=== PATIENT | male | born 1965 | race Caucasian/White ===

== ENCOUNTER 2024-05-26 15:45 | Outpatient (CLI) | payer OTHER, SELFPAY ==
[2024-05-26 16:40] LABS: Basophils # 0.1 K/mm3 (0-0.2); Basophils % 0.5 % (0.1-2.0); Eosinophils # 0.1 K/mm3 (0.0-0.4); Eosinophils % 1.2 % (0.1-12.0); Hematocrit 48.9 % (42.0-52.0); Hemoglobin 16.7 g/dL (14.1-18.0); Lymphocytes # 3.5 K/mm3 (0.7-4.5); Lymphocytes % 36.3 % (10-50); Mean Corpuscular HGB Conc 34.2 g/dL (31.8-35.4); Mean Corpuscular Hemoglobin 31.6 pg (27.0-31.2); Mean Corpuscular Volume 92.6 fl (80-94); Mean Platelet Volume 9.6 fl (7.4-10.4); Monocytes # 0.6 K/mm3 (0.1-1.0); Monocytes % 6.6 % (1.7-9.3); Neutrophils # 5.3 K/mm3 (1.8-7.8); Neutrophils % 55.1 % (37.0-80.0); Nucleated Red Blood Cells # 0 10^3/uL; Nucleated Red Blood Cells % 0 %; Platelet Count 189 K/mm3 (142-424); Red Blood Count 5.28 M/mm3 (4.60-6.20); Red Cell Distribution Width 12.7 % (11.5-17.5); Red Cell Distribution Width-SD 43.3 fL; White Blood Count 9.7 K/mm3 (4.8-10.8)
[2024-05-26 17:14] LABS: Alanine Aminotransferase 47 U/L (12-78); Albumin Level 4.5 g/dl (3.5-5.0); Albumin/Globulin Ratio 1.6 (1.1-1.8); Alkaline Phosphatase 93 U/L (38-126); Anion Gap 17.1 mEq/L (5-15); Aspartate Amino Transferase 42 U/L (17-59); Bilirubin,Total 0.8 mg/dl (0.2-1.3); Blood Urea Nitrogen 22 mg/dl (9-20); Calcium 9.9 mg/dl (8.4-10.2); Carbon Dioxide 27 mmol/L (22.0-30.0); Chloride 99 mmol/L (98-107); Chol/HDL Ratio 9.3 (1-3.5); Cholesterol 287 mg/dl (140-200); Estimated Glomerular Filt Rate 87 ml/min (>60); GFR (African American) 105 ML/MIN (>60); Globulin 2.9 g/dL (1.3-3.2); Glucose 132 mg/dl (74-100); HDL Cholesterol 31 mg/dl (40-60); Potassium 4.1 mmoL/L (3.5-5.1); Sodium 139 mmol/L (136-145); Total Protein,Serum 7.4 g/dl (6.3-8.2)
[2024-05-26 17:15] LABS: Triglycerides 500 mg/dl (30-150)
[2024-05-26 17:25] LABS: Direct LDL Cholesterol 148.83 mg/dL (100-129)
[2024-05-26 17:44] LABS: Thyroid Stimulating Hormone 1.33 uIU/mL (0.465-4.68)
[2024-05-26 21:02] LABS: Hemoglobin A1C 7.7 % (4.0-6.0)
[2024-05-27 05:01] LABS: Testosterone,Total 876 ng/dL (264-916)
== END 2024-05-26 23:59 | disposition home or self-care (01) ==
LOC: LAB 15:51
PROVIDERS: Visit Provider Family Medicine
DX: E29.1 Testicular hypofunction (principal); E11.40 Type 2 diabetes mellitus with diabetic neuropathy, unspecified; I10 Essential (primary) hypertension; E29.9 Testicular dysfunction, unspecified; Z79.84 Long term (current) use of oral hypoglycemic drugs; Z79.85 Long-term (current) use of injectable non-insulin antidiabetic drugs; F17.200 Nicotine dependence, unspecified, uncomplicated
CPT/HCPCS: 36415; 80053; 80061; 83036; 84403; 84443; 85025

== ENCOUNTER 2024-06-01 13:07 | Emergency (ER) | payer OTHER, SELFPAY ==
[2024-06-01 13:27] VITALS: BP 171/95; PULSE 77; RESP 17; TEMP 37.1; O2SAT 96
--- NOTE | 2024-06-01 13:37 | XR_ITS ---
PROCEDURE INFORMATION: Exam: XR Right Elbow Exam date and time: 06/01/2024 1:31 PM Age: 59 years old Clinical indication: Injury or trauma; Fall; Blunt trauma (contusions or hematomas); Elbow; Right; Additional info: Posterior fat pad foosh injury TECHNIQUE: Imaging protocol: Radiologic exam of the right elbow. Views: 3 or more views. COMPARISON: CR XR ELBOW RT MIN 3V 06/01/2024 1:31 PM FINDINGS: Bones/joints: A small bone fragment is suspected near the coronoid process of the ulna. There may be a small joint effusion. No other fractures, dislocations, or focal bone lesions. Soft tissues: No soft tissue gas, radiopaque foreign bodies, or masses. IMPRESSION: Loose body or avulsion fracture fragment are suspected near the coronoid process of the right ulna. CT or MRI are suggested for further characterization.
--- NOTE | 2024-06-01 13:38 | XR_ITS ---
PROCEDURE INFORMATION: Exam: XR Right Forearm Exam date and time: 06/01/2024 1:32 PM Age: 59 years old Clinical indication: Injury or trauma; Fall; Blunt trauma (contusions or hematomas); Arm, lower; Right; Additional info: Foosh injury, lateral forearm pain TECHNIQUE: Imaging protocol: Radiologic exam of the right forearm. Views: 2 views. COMPARISON: CR XR FOREARM RT 2V 06/01/2024 1:32 PM FINDINGS: Bones/joints: Bone spur or fracture of the coronoid process. No other fractures, dislocations, or focal bone lesions. Soft tissues: No soft tissue gas, radiopaque foreign bodies, or masses. IMPRESSION: 1. Questionable fracture of the coronoid process of the right ulna. 2. No other acute findings in the right forearm.
--- NOTE | 2024-06-01 13:38 | XR_ITS ---
PROCEDURE INFORMATION: Exam: XR Right Hand Exam date and time: 06/01/2024 1:34 PM Age: 59 years old Clinical indication: Injury or trauma; Fall; Blunt trauma (contusions or hematomas); Hand; Right; Additional info: Lateral hand pain, foosh injury, TECHNIQUE: Imaging protocol: Radiologic exam of the right hand. Views: 3 or more views. COMPARISON: CR XR HAND RT MIN 3V 06/01/2024 1:34 PM FINDINGS: Bones/joints: No fractures, dislocations, or bone lesions. Scapholunate space may be widened. Soft tissues: No soft tissue gas, radiopaque foreign bodies, or masses. IMPRESSION: 1. Possible scapholunate dissociation in the right wrist. Wrist radiographs suggested. 2. No other acute findings in the right hand.
--- NOTE | 2024-06-01 13:38 | XR_ITS ---
PROCEDURE INFORMATION: Exam: XR Right Wrist Exam date and time: 06/01/2024 1:36 PM Age: 59 years old Clinical indication: Injury or trauma; Fall; Blunt trauma (contusions or hematomas); Wrist; Right; Additional info: Foosh injury, lateral wrist pain TECHNIQUE: Imaging protocol: Radiologic exam of the right wrist. Views: 3 or more views. COMPARISON: CR XR HAND RT MIN 3V 06/01/2024 1:34 PM FINDINGS: Bones/joints: Scapholunate space is slightly widened. No fractures, dislocations, or focal bone lesions. Mild bone hypertrophy in the distal radioulnar joint. Soft tissues: No soft tissue gas, radiopaque foreign bodies, or masses. IMPRESSION: 1. Scapholunate dissociation is suspected. MRI is suggested if clinically warranted. 2. No fractures or dislocations in the right wrist. If occult fracture is clinically suspected, splinting and short-term wrist x-ray surveillance or MRI of the wrist would be suggested.
--- NOTE | 2024-06-01 13:40 | PC.NURSE ---
pt currently going for scans
--- NOTE | 2024-06-01 13:43 | HMH.EDGENADL ---
Discharge Plan Disposition Patient Disposition: Home, Self-Care Condition: Good Referrals Follow up/Referrals: Saeed Arellano DO [Staff Physician] - See instructions Provider,Referral, [Primary Care Provider] - See instructions Activity Restrictions/Add. Instructions Additional Instructions/Restrictions: Please return to the emergency department for any worsening signs or symptoms, please follow-up with orthopedic provider in the upcoming days. Utilized sling as needed, I recommend rest ice, other anti-inflammatory medications and muscle relaxers as needed for symptomatic relief. Clinical Impressions Clinical Impression: Fracture of coronoid process of right ulna, Scapho-lunate dissociation Instructions Patient Instructions: DI for Elbow Fracture, DI for Wrist Strain Print Language Print Language: Kazakh Discharge ED Provider: Tylor Link General Adult HPI <TOM Zepeda - Last Filed: 06/01/24 15:28> General Chief complaint: Extremity Injury, Upper Stated complaint: AO 05/31/24 R Arm Pain/Swelling Time Seen by Provider: 06/01/24 13:13 Mode of Arrival: Ambulatory Source of Information: Patient Description of Symptoms (Recalled from ER Triage Doc. by RN): pt to the ED after tripping over a pile of lumber and falling to the ground onto his right arm. pt reports right forearm pain that radiates to his shoulder and hand. pt has +PMS and swelling observed on assessment. History of Present Illness HPI narrative: 59-year-old male presents the emergency department with a FOOSH injury on the right arm, complaining of right elbow pain, right forearm pain, right wrist and right hand pain more located on the lateral aspect, patient states this occurred yesterday when he was moving some lumber , when he tripped falling around 2 to 3 feet, off the [facility] , he did not strike the head, he landed on his right arm, denies any right shoulder pain or right humeral pain, with range of motion, but he does state that the pain will shoot up into the shoulder . He has difficulty with pronation supination and internal and external rotation of the forearm, notes pain and swelling on the lateral aspect of the forearm in the olecranon region. He is not on any anticoagulant therapy, denies any fever chills chest pain shortness of breath nausea vomiting constipation diarrhea no abdominal pain, no other extremity pain, neck or back pain, is without a presyncopal or syncopal event, patient states that he tripped . Other past medical history consistent with type 2 diabetes and hypertension, denies any substance use or abuse. Initial triage vitals unremarkable. Patient been taking muscle relaxer (methocarbamol) and ibuprofen with some relief to his symptomatology. Brought him to the emergency department today was his pain with range of motion and swelling. Onset (ago): day(s) Related Data Allergies Allergy/AdvReac Type Severity Reaction Status Date / Time No Known Allergies Allergy Verified 06/01/24 13:42 PFS <TOM Zepeda - Last Filed: 06/01/24 15:28> [facility] [place] Disclaimer: The information contained in this section may have been updated after the patient was seen, as this information can be updated by other users. Social History (Updated 06/01/24 @ 15:28 by TOM Zepeda) Smoking Status: Current every day smoker alcohol intake: never current occupational status: other Travel in the last 8 weeks: None <TOM Zepeda - Last Filed: 06/01/24 15:28> ROS Obtained: Yes All systems reviewed & no additional complaints except as documented Physical Exam <TOM Zepeda - Last Filed: 06/01/24 15:28> General General appearance: alert and in no apparent distress Head Head exam: atraumatic and normocephalic Eye Eye exam: Present PERRL and EOMI ENT ENT exam: Present mucous membranes moist Neck Neck exam: Present normal inspection Chest Chest inspection: Present normal inspection and symmetric chest wall rise Respiratory Respiratory exam: Present normal lung sounds bilaterally; Absent respiratory distress Cardiovascular Cardiovascular exam: Present regular rate and normal rhythm Abdominal Exam Abdominal exam: Present soft; Absent tenderness Extremities Exam Extremities exam: Present normal inspection, tenderness, joint swelling and other (Patient has decreased range of motion of the right forearm and right elbow, patient has difficulty with internal and external rotation, difficulty with pronation and supination, there is tenderness along the lateral aspect of the olecranon region down to the hand, carpal rows appear intact, no anato); Absent full ROM Neurological Exam Neurological exam: Present alert and oriented X3 Psychiatric Psychiatric exam: Present normal affect Skin Skin exam: Present warm and dry Medical Decision Making <TOM Zepeda - Last Filed: 06/01/24 15:28> Medical Records Medical records reviewed: Yes I reviewed the patient's medical records. Screening: Per USPSTF and CDC recommendations, given the prevalence of disease in our region, it is our hospital?s policy to screen for HIV and viral Hepatitis for all patients aged 18 and over and those with ongoing risk factors. Leo Inquiry Pt receiving controlled substance: No Leo was queried for this patient: No Vital Signs: 06/01/24 13:27 06/01/24 15:36 Temperature 98.7 F 98.0 F Temperature Source Oral Oral Pulse Rate 71 Pulse Rate [Left Radial] 77 Respiratory Rate 17 16 Blood Pressure 156/90 H Blood Pressure [Right Arm] 171/95 H Blood Pressure Mean [Right Arm] 120 Blood Pressure Source Automatic Cuff Blood Pressure Source [Right Arm] Automatic Cuff Blood Pressure Position Sitting Blood Pressure Position [Right Arm] Sitting 02 Sat by Pulse Oximetry 96 Oxygen Delivery Method Room Air Room Air Orders (Tests/Meds): ED MEDICATIONS Discontinued Medications Generic Name Dose Route Start Last Admin Trade Name Freq PRN Reason Stop Dose Admin Ketorolac Tromethamine 15 mg 06/01/24 13:39 06/01/24 13:51 Ketorolac 30mg/Ml Vial IM 06/01/24 13:40 15 mg ONCE ONE Administration ORDERS Category Date Time Status Hand XR right minimum 3 views [XR hand RT min 3V] Stat Exams 06/01/24 13:38 Completed POCUS Point of Care (ER Only) Stat Exams 06/01/24 13:37 Completed XR elbow RT min 3V Stat Exams 06/01/24 13:37 Completed XR forearm RT 2V Stat Exams 06/01/24 13:38 Completed XR wrist RT min 3V Stat Exams 06/01/24 13:38 Completed Medical Decision Narrative: 59-year-old male presents emergency department with a FOOSH injury of the right forearm, differential diagnose include not limited to supracondylar fracture, radial head fracture, ulnar fracture, olecranon dislocation, olecranon fracture, forearm musculoskeletal injury, forearm sprain/strain, elbow sprain/strain, wrist fracture, wrist sprain/strain. I discussed patient case with attending physician saw and examined the patient as well. Will obtain x-ray of the elbow, forearm, wrist and hand on the right, will also obtain POCUS for any soft tissue/forearm musculoskeletal injury, and will give 15 mg IM Toradol. I along with the attending physician from bedside POCUS ultrasound. Please see ultrasound documentation for full report. I reviewed and independently interpreted the patient's elbow x-ray along the corresponding radiologic report, loose body or avulsion fracture fragment suspected near the coronoid process of the right ulna, CT or MRI suggest for further characterization. Reviewed the patient's x-ray of the forearm, hand x-ray, and independently interpreted and along with the corresponding radiologic report, questionable fracture of the coronoid process of the right ulna, no other acute findings in the right forearm. There is possible scapholunate dissociation of the right wrist, right wrist radiographs suggested, no other acute findings in the right hand. Reviewed and independently interpreted the patient's right wrist x-ray along the corresponding radiologic report, scapholunate dissociation is suspected MRI suggested if clinically warranted, no fractures or dislocation the right wrist difficult fracture is clinically suspected splinting and short-term wrist x-ray surveillance or MRI of the wrist would be suggested. I discussed this patient's case with Dr. Arellano the on-call orthopedic surgeon at 3:22 PM, he recommends posterior long-arm splint and follow-up in orthopedic surgery clinic. Recommend rest ice compression elevation, patient was placed in posterior long-arm splint with sling, post procedurally, neurovascular intact, moves extremity command, no difficulty or pain. Patient voiced understanding of the current treatment plan/discharge plan. Patient will return emerged part any worsening signs or symptoms. <Tylor Link MD - Last Filed: 06/03/24 19:42> Vital Signs: 06/01/24 13:27 06/01/24 15:36 Temperature 98.7 F 98.0 F Temperature Source Oral Oral Pulse Rate 71 Pulse Rate [Left Radial] 77 Respiratory Rate 17 16 Blood Pressure 156/90 H Blood Pressure [Right Arm] 171/95 H Blood Pressure Mean [Right Arm] 120 Blood Pressure Source Automatic Cuff Blood Pressure Source [Right Arm] Automatic Cuff Blood Pressure Position Sitting Blood Pressure Position [Right Arm] Sitting 02 Sat by Pulse Oximetry 96 Oxygen Delivery Method Room Air Room Air Orders (Tests/Meds): ED MEDICATIONS Discontinued Medications Generic Name Dose Route Start Last Admin Trade Name Freq PRN Reason Stop Dose Admin Ketorolac Tromethamine 15 mg 06/01/24 13:39 06/01/24 13:51 Ketorolac 30mg/Ml Vial IM 06/01/24 13:40 15 mg ONCE ONE Administration ORDERS Category Date Time Status Hand XR right minimum 3 views [XR hand RT min 3V] Stat Exams 06/01/24 13:38 Completed POCUS Point of Care (ER Only) Stat Exams 06/01/24 13:37 Completed XR elbow RT min 3V Stat Exams 06/01/24 13:37 Completed XR forearm RT 2V Stat Exams 06/01/24 13:38 Completed XR wrist RT min 3V Stat Exams 06/01/24 13:38 Completed Medical Decision Narrative: 59-year-old male presents emergency department with a FOOSH injury of the right forearm, differential diagnose include not limited to supracondylar fracture, radial head fracture, ulnar fracture, olecranon dislocation, olecranon fracture, forearm musculoskeletal injury, forearm sprain/strain, elbow sprain/strain, wrist fracture, wrist sprain/strain. I discussed patient case with attending physician Dr.Kayser mitchell and examined the patient as well. Will obtain x-ray of the elbow, forearm, wrist and hand on the right, will also obtain POCUS for any soft tissue/forearm musculoskeletal injury, and will give 15 mg IM Toradol. I along with the attending physician from bedside POCUS ultrasound. Please see ultrasound documentation for full report. I reviewed and independently interpreted the patient's elbow x-ray along the corresponding radiologic report, loose body or avulsion fracture fragment suspected near the coronoid process of the right ulna, CT or MRI suggest for further characterization. Reviewed the patient's x-ray of the forearm, hand x-ray, and independently interpreted and along with the corresponding radiologic report, questionable fracture of the coronoid process of the right ulna, no other acute findings in the right forearm. There is possible scapholunate dissociation of the right wrist, right wrist radiographs suggested, no other acute findings in the right hand. Reviewed and independently interpreted the patient's right wrist x-ray along the corresponding radiologic report, scapholunate dissociation is suspected MRI suggested if clinically warranted, no fractures or dislocation the right wrist difficult fracture is clinically suspected splinting and short-term wrist x-ray surveillance or MRI of the wrist would be suggested. I discussed this patient's case with Dr. Arellano the on-call orthopedic surgeon at 3:22 PM, he recommends posterior long-arm splint and follow-up in orthopedic surgery clinic. Recommend rest ice compression elevation, patient was placed in posterior long-arm splint with sling, post procedurally, neurovascular intact, moves extremity command, no difficulty or pain. Patient voiced understanding of the current treatment plan/discharge plan. Patient will return emerged part any worsening signs or symptoms. I was consulted by the BRANDON, and we discussed the complexity of the problems being addressed.I approved the treatment and management plan for this patient?s care in the Emergency Department, thus performing a substantive portion of the medical decision making.Signed, Tylor Link MD [facility] <TOM Zepeda - Last Filed: 06/01/24 15:28> Critical Care Time Critical Care Time: No
[2024-06-01] MEDS: KETOROLAC 30MG/ML VIAL 15 MG IM (13:51)
--- NOTE | 2024-06-01 15:21 | PC.NURSE ---
splinted patient in a sugar tong splint and placed in a sling all PMS in tact after placement.
[2024-06-01 15:36] VITALS: BP 156/90; PULSE 71; RESP 16; TEMP 36.7; O2SAT 92
== END 2024-06-01 15:37 | disposition home or self-care (01) ==
PROVIDERS: Emergency Provider Emergency Medicine
DX: S52.041A Displaced fracture of coronoid process of right ulna, initial encounter for closed fracture (principal); M25.331 Other instability, right wrist; W01.10XA Fall on same level from slipping, tripping and stumbling with subsequent striking against unspecified object, initial encounter
CPT/HCPCS: 29105; 73080; 73090; 73110; 73130; 96372; 99283; J1885

== ENCOUNTER 2024-06-11 07:16 | Outpatient (CLI) | payer OTHER, SELFPAY ==
--- NOTE | 2024-06-11 07:30 | CT_ITS ---
FINAL REPORT CLINICAL HISTORY: Rt Elbow fracture COMPARISON: Elbow plain film dated 06/01/2024 FINDINGS: CT RIGHT ELBOW WITHOUT CONTRAST TECHNIQUE: Axial and reformatted sagittal and coronal images were obtained of the right elbow. This study was performed with techniques to keep radiation doses as low as reasonably achievable, (ALARA). Individualized dose reduction techniques using automated exposure control or adjustment of mA and/or kV according to the patient's size were employed. FINDINGS: There are small osteophytes arising from the coronoid process seen on images [id number] of series 601. A minimal osteophyte is identified along the superior margin of the olecranon, posteriorly. No free fragments are seen. There is no joint effusion. No definite acute fracture is identified IMPRESSION: No definite acute fracture. Reviewed, Interpreted and Dictated by Micheal Garcia MD Transcribed by Deanna Samaniego Authenticated and [facility]
== END 2024-06-11 23:59 | disposition home or self-care (01) ==
LOC: RAD 07:17
PROVIDERS: PCP Family Medicine; Visit Provider Physician Assistant
DX: S42.401A Unspecified fracture of lower end of right humerus, initial encounter for closed fracture (principal)
CPT/HCPCS: 73200

== ENCOUNTER 2024-06-15 16:09 | Outpatient (CLI) | payer OTHER, SELFPAY ==
--- NOTE | 2024-06-15 16:12 | MR_ITS ---
PROCEDURE INFORMATION: Exam: MR Lumbar Spine Without Contrast Exam date and time: 06/15/2024 4:17 PM Age: 59 years old Clinical indication: Low back pain; Lower back pain going into legs worse on right side TECHNIQUE: Imaging protocol: Magnetic resonance imaging of the lumbar spine without contrast. COMPARISON: No relevant prior studies available. FINDINGS: Bones/joints: A subcentimeter T1 hyperintense hemangioma is seen within the T12 vertebral body. The lumbar vertebral bodies are normal in height, without abnormal subluxation. Spinal cord: The distal end of the conus medullaris ends at L1, normal in position. Multilevel findings: Degenerative changes are noted from L3-L4 through L5-S1, with a decrease in the T2 signal intensity of the discs, as well as disc bulge/osteophyte complexes. L1-L2: Bilateral facet arthropathy. Minimal disc bulging is visualized causing flattening of the ventral thecal sac, without significant spinal canal stenosis. There is narrowing of the right lateral recess. Mild bilateral neural foraminal narrowing is identified. L2-L3: Bilateral facet arthropathy with hypertrophy of the ligamentum flavum. A broad-based disc bulge is identified, with severe narrowing of the thecal sac. The AP dimension of the thecal sac measures 0.7 cm. There is narrowing of both lateral recesses. Moderate bilateral neural foraminal narrowing is identified. L3-L4: Bilateral facet arthropathy with hypertrophy of the ligamentum flavum. A broad-based disc bulge is identified, with severe spinal canal stenosis. The AP dimension of the thecal sac measures 0.6 cm. There is narrowing of both lateral recess. Moderate right and severe left neural foraminal narrowing identified. L4-L5: Endplate irregularity is identified. There is abnormal morphology of the posterior elements. A right paracentral disc protrusion is identified, with [id number] spinal canal stenosis. There is narrowing of the right lateral recess. Moderate bilateral neural foraminal narrowing is identified. L5-S1: A significant decrease in disc height is identified, with Modic endplate changes. There is abnormal morphology of the posterior elements. A broad-based disc bulge with right paracentral disc protrusion are identified causing a mild impression on the right ventral thecal sac. There is narrowing of the lateral recesses, right side greater than left, with encroachment on the right S1 nerve root within the right lateral recess. Moderate to severe right and severe left neural foraminal narrowing identified. Soft tissues: Edema is seen within the right posterior paraspinal soft tissues of the level the sacrum. Muscle strain, myositis, and denervation are within the differential. Muscle atrophy is also seen. Kidneys and ureters: At the midpole of the left kidney, a 2.0 cm T2 hyperintense cyst or cystic lesion is partially visualized. IMPRESSION: 1. Degenerative changes are visualized involving the lumbar spine, as described above. 2. Severe spinal canal stenoses are visualized at L2-L3 and L3-L4. At L4-L5, a right paracentral disc protrusion is identified, with [id number] spinal canal stenosis. A right paracentral disc protrusion at L5-S1 causes a mild impression on the right ventral thecal sac. There is encroachment on the right S1 nerve root within the right lateral recess at L5-S1. 3. Neural foraminal narrowing at all lumbar levels. 4. Edema is seen within the right posterior paraspinal soft tissues of the level the sacrum. Muscle strain, myositis, and denervation are within the differential. Muscle atrophy is also seen. 5. At the midpole of the left kidney, a 2.0 cm cyst or cystic lesion is partially visualized. Follow-up ultrasonography recommended. 6. Additional findings described above.
== END 2024-06-15 23:59 | disposition home or self-care (01) ==
LOC: RAD 16:10
PROVIDERS: PCP Family Medicine; Visit Provider Family Medicine
DX: M54.16 Radiculopathy, lumbar region (principal); M54.50 Low back pain, unspecified
CPT/HCPCS: 72148

== ENCOUNTER 2024-07-13 10:05 | Outpatient (CLI) | payer OTHER, SELFPAY ==
--- NOTE | 2024-07-13 | CA_ITS ---
APPROVED REPORT Exam: Exercise Treadmill Technologist: Glenis Villalobos Ht: 6 ft 6 in Wt: 260 lbs BSA: 2.52 m2 HR: 76 bpm BP: 154/90 mmHg Stress Test Details Test: Exercise stress testing was performed using a Gwyn protocol. HR Resting HR: 76 bpm Max Heart Rate (APMHR): 162.437964 bpm Max HR Achieved: 141 bpm Target HR (85% APMHR): 137.990412 bpm % of APMHR: 87.04 Recovery HR: 95 bpm BP Resting BP: 154.0/90.0 mmHg Max BP: 220.0/116.0 mmHg Recovery BP: 186.0/100.0 mmHg ECG Resting ECG: Sinus rhythm Stress ECG Conclusion Symptoms: Fatigue Arrhythmias/Ectopy: PVC, PAC ST-T Changes: [address] depression Conclusion: Borderline abnormal ST depression, abnormal blood pressure response to exercise. Electronically signed by : Gavi German MD 07/14/2024 23:31:40
== END 2024-07-13 23:59 | disposition home or self-care (01) ==
LOC: RT 10:05
PROVIDERS: PCP Family Medicine; Visit Provider Family Medicine
DX: I49.1 Atrial premature depolarization (principal); I49.3 Ventricular premature depolarization; R94.31 Abnormal electrocardiogram [ECG] [EKG]
CPT/HCPCS: 93017; 93018

== ENCOUNTER 2024-09-16 12:41 | Outpatient (RCR) | payer OTHER, SELFPAY | END 2024-10-27 08:00 | disposition home or self-care (01) | LOC: CR 12:41 | PROVIDERS: Visit Provider Family Medicine | DX: I25.10 Atherosclerotic heart disease of native coronary artery without angina pectoris (principal); Z95.1 Presence of aortocoronary bypass graft; Z53.21 Procedure and treatment not carried out due to patient leaving prior to being seen by health care provider ==

== ENCOUNTER 2024-12-10 16:02 | Outpatient (CLI) | payer OTHER, SELFPAY ==
--- OUTSIDE RECORDS SUMMARY | 2024-12-10 16:05 | XMS_ITS | Encounter Summary ---
Author Organization [facility] Address [address] [place] [address] Care Team Providers Care Estate Agent Name Role Phone Justino Sargent DO Primary Care Provider Mauricio Lorenz MD Unavailable [phone] Reason for Referral * Consultation (Routine) - Closed Specialty Diagnoses / Procedures Referred By Contac t Referred To Contact Cardiology Diagnoses Abnormal stress test Family history of coronary artery disease Referral ID Status Reason Start Date Expiration Date Visits Re quested Visits Authorized [id number] Closed 07/26/2024 01/25/2026 1 1 Encounter Details Date Type Department Care Team (Late st Contact Info) Description 07/26/2024 [facility] [address] [place] [address] Justino Sargent DO [address] [place] [address] Abnormal stress test (Primary Dx); Family history of coronary artery disease Social History Tobacco Use Types Packs/Day Years Used Date Smoking Tobacco: Never Assessed Sex and Gender Information Value Date Recorded Sex Assigned at Male 07/01/2024 10:44 AM EDT Legal Sex Male 9:56 AM EDT Gender Identity Male 07/01/2024 10:44 AM EDT Sexual Orientation Not on file documented as of this encounter Plan of Treatment Upcoming Encounters Date Type Department Care Team (Late st Contact Info) Description 02/04/2025 12:30 PM EST Appointment Medical Office Building Cardiac Diagnostic Testing Medical Office Building Echo Lab [address] [facility], [address] [place] [phone] 02/04/2025 2:40 PM EST Office Visit [facility] [place] [address] [facility] [facility], [address] [place] [phone] Mauricio Lorenz MD [address] [place] [address] Scheduled Referrals Name Type Priority Associated Diagnoses Order Schedule Ambulatory referral to Cardiology Outpatient Referral Routine Abnormal stress test Family history of coronary artery disease 1 Occurrences starting 07/26/2024 until 01/27/2026 documented as of this encounter Visit Diagnoses Diagnosis Abnormal stress test- Primary Other nonspecific abnormal cardiovascular system function study Family history of coronary artery disease Family history of ischemic heart disease documented in this encounter Care Teams Estate Agent Relationship Specialty Start Date End Date Justino Sargent DO [address] [place] [address] PCP - General 08/04/24 Mauricio Lorenz MD [address] [place] [address] Consulting Physician Cardiology 09/10/24 documented as of this encounter
--- OUTSIDE RECORDS SUMMARY | 2024-12-10 16:05 | XMS_ITS | Encounter Summary ---
Author Organization [facility] Address [address] [place] [address] Care Team Providers Care City Planner Name Role Phone ArieSimeonkyleeflor FUENTES Primary Care Provider Mauricio Lorenz MD Unavailable [phone] Encounter Details Date Type Department Care Team (Late st Contact Info) Description 06/01/2024 Orders Only External Location [address] [place] [id number] Provider, External Social History Tobacco Use Types Packs/Day Years [...] Medical Office Building Echo Lab [address] [facility], [address] [place] [address] 02/04/2025 2:40 PM EST Office Visit [facility] [place] [address] [facility], [address] [place] [address] Mauricio Lorenz MD [address] [place] [address] documented as of this encounter Procedures Procedure Name Priority Date/Time Associated Diagnosis Comments XR [facility] OUTSIDE IMAGES 06/01/2024 1:34 PM EDT documented in this encounter Results * XR [facility] OUTSIDE IMAGES (06/01/2024 1:34 PM EDT) Anatomical Region Laterality Modality Radiographic Sruthi ging 06/01/2024 1:34 PM EDT us External Provider IMG XR PROCEDURES Final Result documented in this encounter Visit Diagnoses Not on filedocumented in this encounter Care Teams City Planner Relationship Specialty Start Date End Date Justino Sargent DO [address] [place] [address] PCP - General 08/04/24 Mauricio Lorenz MD [address] [place] [phone] Consulting Physician Cardiology 09/10/24 documented as of this encounter
--- OUTSIDE RECORDS SUMMARY | 2024-12-10 16:05 | XMS_ITS | Clinical Summary ---
Author Organization [facility] Address [address] [place] [address] Care Team Providers Care Endoscopy Rn Name Role Phone Justino Sargent DO Primary Care Provider Mauricio Lorenz MD Unavailable [phone] Allergies No known active allergies Medications testosterone cypionate (Depo-Testoste mandi) 200 MG/ML injection INJECT 1/2 ML INTRAMUSCULARLY ONCE A WEEK discard remaindr AFTER each use 07/31/19 25 Active metFORMIN (Glucophage) 500 MG tablet TAKE ONE TABLET BY MOUTH TWICE DAILY (900am AND 900pm) 07/31/19 25 Active citalopram (CeleXA) 40 MG tablet Take 1 tablet by mouth daily. Active nitroglycerin (Nitrostat) 0.[address] 1 tablet under the tongue every 5 minutes as needed for chest pain. May repeat dose every 5 minutes for up to 3 doses total. 100 tablet 08/07/19 026 Active ASPIRIN 81 MG chewable tablet Chew 1 tablet daily. Active B Complex-C (b complex-vitami n c) tablet Take 1 tablet by mouth daily. Active cholecalcifero l (Vitamin D-3) 250 MCG (44836 UT) capsule Take 1 capsule by mouth daily. Active Turmeric (QC TUMERIC COMPLEX PO) Take 1 tablet by mouth daily. Active Continuous Glucose Sensor (FreeStyle Sampson 3 Plus Sensor) misc 1 sensor every 15 days. Apply one censor every 15 days. 2 each 08/17/19 25 Active metoprolol tartrate (Lopressor) 25 MG tablet Take 1 tablet by mouth 2 times a day. 60 tablet 2 08/20/19 25 Active acetaminophen (Tylenol) 325 MG tablet Take 2 tablets by mouth every 4 hours as needed for pain, headaches or fever. Under [place] law, monthly prescriptions (30 days) can be refilled at 25 days and three-month prescriptions (90 days) at 80 days. Please contact the insurance company with questions if refills are denied. 100 tablet 08/20/19 25 Active atorvastatin (Lipitor) 80 MG tablet Take 1 tablet by mouth nightly. 30 tablet 2 08/20/19 25 Active ezetimibe (Zetia) 10 MG tablet Take 1 tablet by mouth nightly. 30 tablet 2 08/20/19 25 Active Blood Glucose Monitoring Suppl device Test three times daily 1 each 08/20/19 25 Active glucose blood test strip Test three times daily 300 strip 08/20/19 25 Active Lancets misc Test three times daily 300 each 08/20/19 25 Active Alcohol Sheets (Alcoh-Wipe) sheet Use as directed. 300 each 08/20/19 25 Active pen needle, diabetic 31G X 5 MM misc Use as directed with insulin pen. 100 each 08/20/19 25 Active insulin glargine (Lantus SoloStar) 100 UNIT/ML injection pen Inject 18 Units under the skin nightly. 15 mL 3 08/20/19 25 Active pen needle, diabetic 31G X 5 MM misc Use as directed with insulin pen. 100 each 08/20/19 25 Active insulin lispro 100 UNIT/ML injection pen Inject 6 Units under the skin 3 times a day with meals. Add a correction scale dose as follows: blood sugar 150-199 use 1 unit, 200-249 use 2 units, 250-299 use 3 units, 300-349 use 4 units, 350-399 use 5 units, >399 use 6 units and call provider. 15 mL 08/20/19 25 Active methocarbamol (Robaxin) 500 MG tablet Take 2 tablets by mouth 4 times a day for 10 days. 80 tablet 08/20/19 25 Active naloxone (Narcan) 4 mg/0.1 mL nasal spray 1. Give 1 spray in nostril for no/slow breathing or cannot wake after opioid use 2. Call 911 3. Repeat in other nostril if symptoms continue 1 each 08/20/19 Active empagliflozin (Jardiance) 10 MG Take 1 tablet by mouth daily. 30 tablet 2 08/20/19 25 Active apixaban (Eliquis) 5 MG tablet Take 1 tablet by mouth 2 times a day. 60 tablet 09/09/19 Active furosemide (Lasix) 40 MG tablet Take 1 tablet by mouth every other day for 5 doses. 5 tablet 09/09/19 Active Additional Information Patient not taking.Reported on 10/06/2024 amLODIPine (Norvasc) 10 MG tablet Take 1 tablet by mouth daily. 30 tablet 5 10/07/19 25 Active Active Problems Problem Noted Date Diagnosed Date BMI 29.0-29.9,adult 09/08/2024 Anemia, unspecified 08/19/2024 Cardiomegaly 08/19/2024 Pleural effusion, not elsewhere classified 08/19 Mild mitral regurgitation 08/18/2024 Mild tricuspid regurgitation 08/18/2024 Hypocalcemia 08/18/2024 Hypophosphatemia 08/18/2024 RBBB 08/18/2024 Hypercholesteremia 08/18/2024 Hypertriglyceridemia 08/18/2024 Hypoalphalipoproteinemia 08/18/2024 Hyperglycemia 08/18/2024 Depression 08/18/2024 Tobacco abuse 08/18/2024 Other specified symptoms and signs involving the circulatory and respiratory systems 08/18/2024 Type 2 diabetes mellitus with hyperglycemia 03/2024 Atrial premature depolarization 08/17/2024 Other nonspecific abnormal finding of lung field 08/17/2024 Atelectasis 08/16/2024 Cardiac volume overload 08/15/2024 Assessment & Plan (08/17/2024 8:34 AM EDT): - eval daily need for diuresis Assessment & Plan (08/16/2024 7:31 AM EDT): - eval daily need for diuresis Assessment & Plan (08/15/2024 3:14 PM EDT): - eval daily need for diuresis Other fecal abnormalities 08/15/2024 Acute blood loss anemia 08/14/2024 Assessment & Plan (08/17/2024 8:34 AM EDT): - Likely s/t blood loss post-op - transfuse as indicated - CTM with daily labs Assessment & Plan (08/16/2024 7:31 AM EDT): - Likely s/t blood loss post-op - transfuse as indicated - CTM with daily labs Assessment & Plan (08/15/2024 3:14 PM EDT): - Likely s/t blood loss post-op - transfuse as indicated - CTM with daily labs Assessment & Plan (08/14/2024 1:09 PM EDT): - Likely s/t blood loss post-op - transfuse as indicated - CTM with daily labs Other specified cardiac arrhythmias 08/14/2024 CAD, multiple vessel 08/13/2024 Assessment & Plan (08/17/2024 8:34 AM EDT): -Now s/p 6v CABG with Dr. Kadie nagel/jose/analy as indicated Assessment & Plan (08/16/2024 7:31 AM EDT): -Now s/p 6v CABG with Dr. Kadie nagel/jose/analy as indicated Assessment & Plan (08/15/2024 3:14 PM EDT): -Now s/p 6v CABG with Dr. Kadie nagel/jose/analy as indicated Assessment & Plan (08/14/2024 1:09 PM EDT): -Now s/p 6v CABG with Dr. Kadie nagel/jose/analy as indicated Assessment & Plan (08/14/2024 2:32 AM EDT): -Monitor per protocol -Now s/p 6v CABG with Dr. Engle Essential hypertension 08/13/2024 Assessment & Plan (08/17/2024 8:34 AM EDT): -Resume home meds as appropriate Assessment & Plan (08/16/2024 7:31 AM EDT): -Resume home meds as appropriate Assessment & Plan (08/15/2024 3:14 PM EDT): -Resume home meds as appropriate Assessment & Plan (08/14/2024 1:09 PM EDT): -Resume home meds as appropriate Assessment & Plan (08/14/2024 2:32 AM EDT): -Monitor per protocol -Resume home meds as appropriate HLD (hyperlipidemia) 08/13/2024 Assessment & Plan (08/17/2024 8:34 AM EDT): - atorva 80 nightly Assessment & Plan (08/16/2024 7:31 AM EDT): - atorva 80 nightly Assessment & Plan (08/15/2024 3:14 PM EDT): - atorva 80 nightly Assessment & Plan (08/14/2024 1:09 PM EDT): - atorva 80 nightly Assessment & Plan (08/14/2024 2:32 AM EDT): -Monitor per protocol. -Statin as appropriate DM (diabetes mellitus), type 2 08/13/2024 Assessment & Plan (08/17/2024 8:34 AM EDT): -Tight glucose control for wound healing -08/16: on resistant SSI. increase long acting and start meal time dose Lab Results Component Value Date HGBA1C 7.4 (H) 08/11/2024 Assessment & Plan (08/16/2024 11:09 AM EDT): -Tight glucose control for wound healing -08/16: on resistant SSI. increase long acting and start meal time dose Lab Results Component Value Date HGBA1C 7.4 (H) 08/11/2024 Assessment & Plan (08/15/2024 3:14 PM EDT): -Tight glucose control for wound healing -resistant SSI+long acting started 08/15 Lab Results Component Value Date HGBA1C 7.4 (H) 08/11/2024 Assessment & Plan (08/14/2024 1:09 PM EDT): -Tight glucose control for wound healing -resistant SSI Lab Results Component Value Date HGBA1C 7.4 (H) 08/11/2024 Assessment & Plan (08/14/2024 2:32 AM EDT): -Monitor per protocol. -Tight glucose control for wound healing Lab Results Component Value Date HGBA1C 7.4 (H) 08/11/2024 S/P coronary artery bypass graft x 6 08/13/2024 Assessment & Plan (08/17/2024 8:34 AM EDT): S/p 6v CABG with Dr. Engle on 08/13 -Monitor CT output -Daily labs and CXR -Diuresis and BB as appropriate Assessment & Plan (08/16/2024 7:31 AM EDT): S/p 6v CABG with Dr. Engle on 08/13 -Monitor CT output -Daily labs and CXR -Diuresis and BB as appropriate Assessment & Plan (08/15/2024 3:14 PM EDT): S/p 6v CABG with Dr. Engle on 08/13 -Monitor CT output -Daily labs and CXR -Diuresis and BB as appropriate Assessment & Plan (08/14/2024 1:09 PM EDT): S/p 6v CABG with Dr. Engle on 08/13 -Monitor CT output -Wean pressors as able -Daily labs and CXR -Diuresis and BB as appropriate Assessment & Plan (08/14/2024 2:32 AM EDT): S/p 6v CABG with Dr. Engle on 08/13 -Monitor CT output -Wean pressors as able -Daily labs and CXR -Diuresis and BB as appropriate Post-operative pain 08/13/2024 Assessment & Plan (08/17/2024 8:34 AM EDT): -[facility] Assessment & Plan (08/16/2024 7:31 AM EDT): -[facility] Assessment & Plan (08/15/2024 3:14 PM EDT): -[facility] Assessment & Plan (08/14/2024 1:09 PM EDT): -[facility] Assessment & Plan (08/14/2024 2:32 AM EDT): -[facility] -Monitor per protocol. Obesity 08/13/2024 Assessment & Plan (08/17/2024 8:34 AM EDT): - complicates all aspects of care Assessment & Plan (08/16/2024 7:31 AM EDT): - complicates all aspects of care Assessment & Plan (08/15/2024 3:14 PM EDT): - complicates all aspects of care Assessment & Plan (08/14/2024 1:09 PM EDT): - complicates all aspects of care Assessment & Plan (08/14/2024 2:32 AM EDT): -Monitor per protocol. [place] (obstructive sleep apnea) 08/13/2024 Assessment & Plan (08/17/2024 8:34 AM EDT): - CTM, no CPAP nightly at home Assessment & Plan (08/16/2024 7:31 AM EDT): - CTM, no CPAP nightly at home Assessment & Plan (08/15/2024 3:14 PM EDT): - CTM, no CPAP nightly at home Assessment & Plan (08/14/2024 1:09 PM EDT): - CTM, no CPAP nightly at home Assessment & Plan (08/14/2024 2:32 AM EDT): -Monitor per protocol. Atherosclerotic heart diseas e of [place] coronary artery with angina pectoris 08/13/2024 Abnormal electrocardiogram (ECG) (EKG) Unspecified atrial fibrillation 08/13/2024 Accessory lobe of lung 08/12/2024 Malformation of coronary vessels 08/12/2024 Occlusion and stenosis of bilateral carotid radha seymour 08/12/2024 Thoracic aortic ectasia 08/12/2024 Chronic total occlusion of coronary artery 08/11 Rheumatic disorders of both mitral and tricuspid valves 08/11/2024 Atrioventricular block, first degree 08/06/2024 Generalized hyperhidrosis 08/06/2024 Nausea 08/06/2024 Lordosis, unspecified, lumbar region 08/04/2024 Other chest pain 08/04/2024 Chest pain, unspecified 06/25/2024 Testicular hypofunction 06/25/2024 Type 2 diabetes mellitus wit h diabetic neuropathy, unspecified 06/25/2024 Other intervertebral disc displacement, lumbar r egion 06/15/2024 Spinal stenosis of lumbar region 06/15/2024 Spondylosis without myelopat hy or radiculopathy, cervical region 06/15/2024 Pain in right elbow 06/11/2024 Other instability, right wrist 06/07/2024 Unspecified fracture of lowe r end of right humerus, initial encounter for closed fracture 06/07/2024 Pain in right forearm 06/01/2024 Pain in right wrist 06/01/2024 Unspecified injury of right elbow, initial encou nter 06/01/2024 Unspecified injury of right wrist, hand and finger(s), initial encounter 06/01/2024 Involuntary movements 03/15/2022 Pain 10/09/2021 Overview (09/24/2024): 09/2021 - s/p steroid injection (ortho) Male erectile dysfunction, unspecified Overview (09/24/2024): 03/2021 - trial viagra -01/16/22: increase viagra to 50mg. Can try 1.5 pills (75mg) or even 2 (100mg) if ineffective. Discussed arousal still needs to be present, and anxieties may need to be worked on with partners. Benign prostatic hyperplasia without urinary obs truction 03/19/2016 Overview (09/24/2024): -12/2017 normal PSA. -sx much better on tamsulosin 2017. 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 Recurrent major depressive disorder 11/04/2009 Overview (09/24/2024): tx @ [facility]: Depression - feels irritable and with short temper. Doing well on qd SSRI 09/2015. Dyslipidemia 04/22/2009 Overview (09/24/2024): [facility] BID - may consider d/c gemfib at future visit Resolved Problems Problem Noted Date Diagnosed Date Resolved Date Thrombocytopenia 08/18/2024 08/19/2024 Hyperkalemia 08/18/2024 08/19/2024 Hypermagnesemia 08/18/2024 08/19/2024 On supplemental oxygen by nasal cannula 08/14/2024 08/19/2024 Assessment & Plan (08/17/2024 8:34 AM EDT): - HFNC, wean as able - wean as able - duoneb scheduled - aggressive pulmonary toilet Assessment & Plan (08/16/2024 7:31 AM EDT): - HFNC, wean as able - wean as able - duoneb scheduled - aggressive pulmonary toilet Assessment & Plan (08/15/2024 3:14 PM EDT): - HFNC 30L/40% - wean as able - duoneb scheduled Assessment & Plan (08/14/2024 1:09 PM EDT): - HFNC 30L/40% - wean as able Leukocytosis 08/14/2024 08/19/2024 Assessment & Plan (08/17/2024 8:34 AM EDT): - likely reactive post-op, downtrending - CTM with daily labs Assessment & Plan (08/16/2024 7:31 AM EDT): - likely reactive post-op, downtrending - CTM with daily labs Assessment & Plan (08/15/2024 3:14 PM EDT): - likely reactive post-op - CTM with daily labs Assessment & Plan (08/14/2024 1:09 PM EDT): - likely reactive post-op - CTM with daily labs On mechanically assisted ventilation 08/13/2024 08/14/2024 Assessment & Plan (08/14/2024 1:09 PM EDT): -Wean vent as able -Monitor per protocol. Assessment & Plan (08/14/2024 2:32 AM EDT): -Wean vent as able -Monitor per protocol. Hypotension 08/13/2024 08/15/2024 Assessment & Plan (08/14/2024 1:09 PM EDT): -Wean pressors as able -fluid resuscitate as indicated Assessment & Plan (08/14/2024 2:32 AM EDT): -Wean pressors as able -Monitor per protocol. Low cardiac output syndrome 08/13/2024 08/15/2024 Assessment & Plan (08/14/2024 1:09 PM EDT): -wean epi as able -trend MV Assessment & Plan (08/14/2024 2:32 AM EDT): -Monitor per protocol. Angina pectoris, unstable 08/06/2024 Assessment & Plan (08/14/2024 1:09 PM EDT): -Monitor per protocol. Assessment & Plan (08/13/2024 9:13 PM EDT): -Monitor per protocol. Encounters Date Type Department Care Team Description 11/29/2024 [facility]phone [facility] [address], [address] [place] [address] Mark Tobin MD 11/01/2024 Results Follow-Up [facility] Kimberly Dixon [address] [place] [address] Mauricio Lorenz MD 10/06/2024 1:40 PM EDT - 10/06/2024 11:59 PM EDT Hospital Encounter Cardiac Imaging [address] [place] [address] Atrial flutter, unspecified type (CMS/HCC) Discharge Disposition: Home or Self Care 10/06/2024 12:14 PM EDT - 10/06/2024 1:39 PM EDT Hospital Encounter [facility] [address] [place] [address] Atrial flutter, unspecified type (CMS/HCC) Discharge Disposition: Home or Self Care 10/06/2024 Travel 10/05/2024 Telephone [facility] [address] [place] [address] Sandy Sanders, LOGAN 10/05/2024 Telephone [facility] [address] [place] [address] Sandy Sanders RN 10/01/2024 4:00 PM EDT Office Visit [facility] [address] , [address] [place] [address] Mauricio Lorenz MD CAD, multiple vessel (Primary Dx); Essential hypertension; Hyperlipidemia, unspecified hyperlipidemia type; S/P coronary artery bypass graft x 6; [place] (obstructive sleep apnea); Atrial flutter, unspecified type (CMS/HCC); Cellulitis of left lower extremity 10/01/2024 Travel 09/17/2024 Telephone [facility] [address] , [address] [place] [address] Mauricio Lorenz MD from Last 3 Months Immunizations Immunization Administration Dates Next Due Influenza, Unspecified 03/21/2020,11/17/2018,06/2017 Pneumococcal Polysaccharide PPV23 12/22/2017 Tdap 03/19/2016 Social History Tobacco Use Types Packs/Day Years Used Date Smoking Tobacco: Never Smokeless Tobacco: Current Chew Tobacco Cessation:Ready to Q uit: Not Asked; Counseling Given: Not Answered Alcohol Use Standard Drinks/Week Comments Never 0 (1 standard drink = 0.6 oz pur e alcohol) PHQ-2 Answer Date Recorded Patient Health Questionnaire-2 Score 0 10/01/2024 PHQ-9 Answer Date Recorded Patient Health Questionnaire-9 Score 0 10/01/2024 Humiliation, Afraid, Rape, and Kick questionnair e Answer Date Recorded Within the last year, have y ou been afraid of your partner or ex-partner? No 08/12/2024 Within the last year, have y ou been humiliated or emotionally abused in other ways by your partner or ex-partner? No Within the last year, have y ou been kicked, hit, slapped, or otherwise physically hurt by your partner or ex-partner? No 08/12/2024 Within the last year, have y ou been raped or forced to have any kind of sexual activity by your partner or ex-partner? No 08/12/2024 AUDIT-C Answer Date Recorded Q1: How often do you have a drink containing alcohol? Never 10/01/2024 Q2: How many drinks containi ng alcohol do you have on a typical day when you are drinking? Patient does not drink Q3: How often do you have si x or more drinks on one occasion? Never 10/01/2024 Overall Financial Resource Strain (CARDIA) Answe r Date Recorded How hard is it for you to pa y for the very basics like food, housing, medical care, and heating? Not hard at all 08/12/2024 Hunger Vital Sign Answer Date Recorded Within the past 12 months, y ou worried that your food would run out before you got the money to buy more. Never true 08/13/19 Within the past 12 months, t he food you bought just didn't last and you didn't have money to get more. Never true 08/12/2024 PRAPARE - Transportation Answer Date Re corded In the past 12 months, has l ack of transportation kept you from medical appointments or from getting medications? No 07/19 In the past 12 months, has l ack of transportation kept you from meetings, work, or from getting things needed for daily living? No 08/12/2024 Housing Stability Vital Sign Answer Jet e Recorded In the last 12 months, was t here a time when you were not able to pay the mortgage or rent on time? No 08/12/2024 In the past 12 months, how m any times have you moved where you were living? 0 08/12/2024 At any time in the past [address] [facility], were you homeless or living in a senior living (including now)? No 08/12/2024 Utilities Answer Date Recorded In the past 12 months has th e electric, gas, oil, or water company threatened to shut off services in your home? No 08/12/2024 Sex and Gender Information Value Date Recorded Sex Assigned at Male 07/01/2024 10:44 AM EDT Legal Sex Male 9:56 AM EDT Gender Identity Male 07/01/2024 10:44 AM EDT Sexual Orientation Not on file Last Filed Vital Signs Vital Sign Reading Time Taken Comments Blood Pressure 131/86 10/06/2024 2:00 PM EDT Pulse 79 10/06/2024 2:30 PM EDT Temperature 36.4 C (97.5 F) 10/06/2024 12:35 PM EDT Respiratory Rate 14 10/06/2024 2:30 PM EDT Oxygen Saturation 93% 10/06/2024 2:30 PM EDT Inhaled Oxygen Concentration - - Weight 115 kg (253 lb 8.5 oz) 10/06/2024 12:35 P M EDT Height 198.1 cm (6' 6 ) 10/06/2024 12:35 PM EDT Body Mass Index 29.3 10/06/2024 12:35 PM EDT Plan of Treatment Upcoming Encounters Date Type Department Care Team (Late st Contact Info) Description 02/04/2025 12:30 PM EST Appointment Medical Office Building Cardiac Diagnostic Testing Medical Office Building Echo Lab [address], [address] [place] [address] 02/04/2025 2:40 PM EST Office Visit [facility] Kimberly Calvin [address], [address] [place] [address] Mauricio Lorenz MD [address] [place] [phone] Health Maintenance Due Date Last Done Comments [facility]-Hepatitis C Screening 1965 [facility]-Infant/Child/Adol SDOH Screenings 1965 Diabetes: Dental Exam 01/24/1976 [facility]-Hepatitis B Vaccines (1 of 3 - 19+ 3-dose series) 1985 CT Colonography 2011 Colonoscopy 2011 FIT-DNA 2011 FIT 2011 FOBT 2011 Sigmoidoscopy 2011 [facility]-Colorectal Cancer Screening 2011 [facility]-Zoster Vaccines (1 of 2) 01/24/2016 [facility]-Pneumococcal Vaccine: 50+ Years (2 of 2 - PCV) 12/22/2018 12/22/2017 [id number] Vaccine (1 - season) 2024 [facility]-Influenza Vaccine (#1) 10/18/202403/21, 11/17/2018, 12/22/2017 [facility]-Diabetes: Hemoglobin A1C 11/10/2024 08/11/2024 [facility]- SDOH Screenings 02/11/2025 [facility]-Adult SDOH Screenings 02/11/2025 08/12/2024 [facility]-Depression Screening 10/01/2025 10/01/2024, 09/17 [facility]-DTaP,Tdap,and Td Vaccines (2 - Td or Tdap) 03/19/2026 03/19/2016 [facility]-HIV Screening Completed 11/04/2012 [facility]-Obesity Intervention Completed 025, 10/01/2024, 09/08/2024, Additional history exists HPV Vaccines Aged Out No longer eligi ble based on patient's age to complete this topic [facility]-HIB Vaccines Aged Out No longer e ligible based on patient's age to complete this topic [facility]-Hepatitis A Vaccines Aged Out No longer eligible based on patient's age to complete this topic [facility]-IPV Vaccines Aged Out No longer e ligible based on patient's age to complete this topic [facility]-Rotavirus Vaccines Aged Out No lo nger eligible based on patient's age to complete this topic Medical Devices Implanted Type Area Welcome Wagon Hostess Device Identifier Shelf Expiration Date Model / Serial / Lot Pledget Ptfe [place] 4.8mm X 6mm - [id number] Implanted:Qty: 1 on 08/13/2024 by Gibson Engle MD at [facility] N/A: [id number] 09/16/2026 [id number] / / Procedures Procedure Name Priority Date/Time Associated Diagnosis Comments ADULT PATCH MONITOR - 14 DAY Routine 10/06/2024 1:55 PM EDT Atrial flutter, unspecified type (CMS/HCC) ECG ADULT Routine 10/06/2024 1:37 PM EDT HC CARDIOVERSION ELECTIVE ARRHYTHMIA EXTERNAL Routine 10/06/2024 1:15 PM EDT Atrial flutter, unspecified type (CMS/HCC) [place] CARDIOVERSION, ELECTIVE;SHOWER ROOM ATTENDANT Routine 10/06/2024 1:15 PM EDT Atrial flutter, unspecified type (CMS/HCC) HEMOGLOBIN A1C Add-On 08/11/2024 11:28 AM EDT from Last 3 Months or Most Recently Relevant to Health Maintenance Results * Adult Patch Monitor - 14 Day (10/06/2024 1:55 PM EDT) BSA 2.52 m2 BIOTELEMETRY Anatomical Region Laterality Modality Other Narrative 10/31/2024 9:07 PM EDT PRELIMINARY FINDINGS: Analysis date: 10/28/24 - by RO1-CCT Patient monitored for 13d 23h, analyzable time was 3d 19h starting on 10/06/2024 01:48 pm. Primary rhythm was Sinus Rhythm. Average heart rate was 85 bpm, Minimum heart rate was 57 bpm on Day :24:56 am, Max heart rate was 154 bpm on Day :05:49 pm SVE(s): [place] was 0.8 %, 3624 total SVE(s) SV Arrhythmia(s): 3 event(s), longest event 5 beats on Day :05:53 pm, fastest event 154 bpm on Day :05:53 pm PVC(s): [place] was 0.14 %, 644 total PVC(s), 4 disparate morphologies PHYSICIAN COMMENTS Agree w findings above. us Mauricio Lorenz MD [facility] CARDIAC SERVICES PROCEDURES Final Result * ECG Adult (10/06/2024 1:37 PM EDT) EKG DIAGNOSIS CLASS Abnormal MUSE ECG Ventricular Rate 81 BPM MUSE ECG Atrial Rate 81 BPM MUSE ECG OK Interval 232 ms MUSE ECG QRSD Interval 102 ms MUSE ECG QT Interval 444 ms MUSE ECG QTC Interval 515 ms MUSE ECG P [place] 87 degrees MUSE ECG R [place] -9 degrees MUSE ECG T Wave [place] 68 degrees MUSE ECG Diagnosis Sinus rhythm with 1st degree AV block MUSE ECG Diagnosis Minimal voltage criteria for LVH, may be normal variant ( Diogo product ) MUSE ECG Diagnosis Inferior infarct , age undetermined MUSE ECG Diagnosis Prolonged QT MUSE ECG Diagnosis Abnormal ECG MUSE ECG Diagnosis MUSE ECG Diagnosis Confirmed by Crow Herbert ([id number]) on 10/06/2024 4:09:25 PM MUSE ECG 10/06/2024 1:37 PM EDT 10/06/2024 4:09 PM EDT us Grace Shannon CAR STARTER ECG ORDERABLES Final Result MUSE ECG * [place] CARDIOVERSION, ELECTIVE;SHOWER ROOM ATTENDANT, HC CARDIOVERSION ELECTIVE ARRHYTHMIA EXTERNAL (10/06/2024 1:15 PM EDT) Narrative Mauricio Lorenz MD - 10/06/2024 1:15 PM EDT Mauricio Lorenz MD 10/06/2024 3:31 PM Electrical Cardioversion Performed by: Mauricio Lorenz MD Authorized by: Mauricio Lorenz MD Consent: Consent obtained: Verbal and written Consent given by: Patient Risks, benefits, and alternatives were discussed: yes Risks discussed: Cutaneous burn, , induced arrhythmia and pain Alternatives discussed: Rate-control medication and anti-coagulation medication Herreid protocol: Procedure explained and questions answered to patient or proxy's satisfaction: yes Relevant documents present and verified: yes Test results available: yes Imaging studies available: yes Required blood products, implants, devices, and special equipment available: yes Immediately prior to procedure, a time out was called: yes Patient identity confirmed: Verbally with patient and provided demographic data Pre-procedure details: Cardioversion basis: Elective Rhythm: Atrial flutter Electrode placement: Anterior-lateral Attempt one: Shock (Joules): 150 Shock outcome: Conversion to normal sinus rhythm Post-procedure details: Patient status: Awake Procedure completion: Tolerated us Mauricio Lorenz MD IN CLINIC/BEDSIDE ORDERABLES Fi nal Result * (ABNORMAL) Hemoglobin A1c (08/11/2024 11:28 AM EDT) Hemoglobin A1c 7.4(H) <5.7 % 08/11/2024 2:23 PM EDT [facility] Blood Venous blood specimen / Unknown Venipuncture / Unknown 08/11/2024 11:28 AM EDT 08/11/2024 11:57 AM EDT Narrative [facility] - 08/11/2024 2:23 PM EDT HA1C Interpretive Data: Diagnosis of Diabetes: Diabetic > or = 6.5% Pre-diabetic 5.7 to 6.4% Non-diabetic < or = 5.6% Glycemic Targets for Type I and Type II Diabetics: Non- Adults <7.0% Adults <6.0% Children and Adolescents <7.5% Source: [place] [employer]. Standards of medical care in diabetes,2017. Diabetes Care.2017:40 (suppl 1):S1-S135. us Mauricio Lorenz MD LAB BLOOD ORDERABLES Final Resu lt [facility] [address] [place] [address] from Last 3 Months or Most Recently Relevant to Health Maintenance Insurance [facility] MEDICAID Advance Directives * Full Code (Latest Code Status on File) Date Activated Date Inactivated Comments 08/13/2024 8:46 PM 08/19/2024 4:23 PM Question Answer Comments I have reviewed the capacity from the link above and, if needed, have updated to appropriate status: Yes * Full Code Date Activated Date Inactivated Comments 08/11/2024 10:16 AM 08/13/2024 8:46 PM Question Answer Comments I have reviewed the capacity from the link above and, if needed, have updated to appropriate status: Yes Care Teams Endoscopy Rn Relationship Specialty Start Date End Date Justino Sargent DO [address] [place] [address] PCP - General 08/04/24 Mauricio Lorenz MD [address] [place] [phone] Consulting Physician Cardiology 09/10/24
--- OUTSIDE RECORDS SUMMARY | 2024-12-10 16:05 | XMS_ITS | Encounter Summary ---
Author Organization [facility] Address [address] [place] [address] Care Team Providers Care Internet Application Developer Name Role Phone Justino Sargent DO Primary Care Provider Mauricio Lorenz MD Unavailable [phone] Encounter Details Date Type Department Care Team (Late st Contact Info) Description 08/16/2024 Lab Requisition [facility] [address] [place] [address] Oumar Koehler MD [address] [facility] [address] [place] [address] Encounter for general adult medical examination without abnormal findings Social History Tobacco Use Types Packs/Day Years Used Date Smoking Tobacco: Never Smokeless Tobacco: Current Chew Alcohol Use Standard Drinks/Week Comments Never 0 (1 standard drink = 0.6 oz pur e alcohol) PHQ-2 Answer Date Recorded Patient Health Questionnaire-2 Score 1 08/06/2024 PHQ-9 Answer Date Recorded Patient Health Questionnaire-9 Score 6 08/06/2024 Humiliation, Afraid, Rape, and Kick questionnair e [...] by your partner or ex-partner? No 08/12/2024 Overall Financial Resource Strain (CARDIA) Answe r [...] money to buy more. Never true 08/13/19 25 Within the past 12 months, t he [...] any time in the past 12 m [facility], were you homeless or living in a nursing home (including now)? No 08/12/2024 Utilities Answer Date Recorded In the past 12 months has th e giddy, gas, oil, or water [employer] threatened to shut off services in your home? No 08/12/2024 Sex and Gender Information Value Date Recorded Sex Assigned at Male 07/01/2024 10:44 AM EDT Legal Sex Male 9:56 AM EDT Gender Identity Male 07/01/2024 10:44 AM EDT Sexual Orientation Not on file documented as of this encounter Functional Status * Calculated C-SSRS Risk Score (Lifetime/Recent) Answer Date of Assessment Author No Risk Indicated 08/19/2024 8:00 AM EDT Cherelle Prince, RN * Question Answer Date of Assessment Author 1. Wish to be (Past 1 Month) No 08/19/2024 8:00 AM EDT Kingsley Baird RN 2. Non-Specific Active Suicidal Thoughts (Past 1 Month) No 08/19/2024 8:00 AM EDT Kingsley Baird RN 6. Suicidal Behavior (Lifetime) No 08/19/2024 8:00 AM EDT Kingsley Baird RN documented as of this encounter Plan of Treatment Upcoming Encounters Date Type Department Care Team (Late st Contact Info) Description 02/04/2025 12:30 PM EST Appointment Medical Office Building Cardiac Diagnostic Testing Medical Office Building Echo Lab [address], [address] [place] [address] 02/04/2025 2:40 PM EST Office Visit [facility] [place] [address] , [address] [place] [address] Mauricio Lorenz MD [address] [place] [address] documented as of this encounter Procedures Procedure Name Priority Date/Time Associated Diagnosis Comments MULTI DRUG RESISTANCE TEST Routine 08/16/2024 3:00 PM EDT Encounter for general adult medical examination without abnormal findings documented in this encounter Results * Multi Drug Resistance Test (08/16/2024 3:00 PM EDT) Culture No growth at day 1 08/17/2024 4:33 PM EDT [facility] Swab Both anterior nares / Unknown 08/16/2024 3:00 PM EDT 08/16/2024 3:57 PM EDT Narrative [facility] - 08/17/2024 4:33 PM EDT This test was developed and its performance characteristics determined by the [facility]. Although the media is FDA-approved, it is not FDA-approved for all specimen types submitted. The FDA has determined that such clearance or approval is not necessary. This test is used for surveillance purposes. It should not be regarded as investigational or for research. The [facility] is certified under the Clinical Laboratory Improvement Amendments of 1988 (CLIA-88) as qualified to perform high complexity clinical laboratory testing. Oumar Koehler MD LAB MICROBIOLOGY - GEN ERAL ORDERABLES Final Result [facility] [address] [place] [address] documented in this encounter Visit Diagnoses Diagnosis Encounter for general adult medical examination without abnormal findings documented in this encounter Additional Health Concerns Assessment Noted Time PHQ-9 Depression Total Score: 6 08/07/19 2:45 PM EDT A fall risk assessment has been complete d for the patient 08/06/2024 2:45 PM EDT A Body Mass Index follow-up plan has been documented for the patient 08/19/2024 12:37 PM EDT documented as of this encounter Care Teams Internet Application Developer Relationship Specialty Start Date End Date Justino Sargent DO [address] [place] [address] PCP - General 08/04/24 Mauricio Lorenz MD [address] [place] [address] Consulting Physician Cardiology 09/10/24 documented as of this encounter
--- OUTSIDE RECORDS SUMMARY | 2024-12-10 16:05 | XMS_ITS | Encounter Summary ---
Author Organization [facility] Address [address] [place] [address] Care Team Providers Care Storage Garage Manager Name Role Phone Justino Sargent DO Primary Care Provider Mauricio Lorenz MD Unavailable [phone] Encounter Details Date Type Department Care Team (Late st Contact Info) Description 11/01/2024 Results Follow-Up [facility] [place] [address] [facility] [place] [address] Mauricio Lorenz MD [address] [place] [address] Social History Tobacco Use Types Packs/Day Years [...] any time in the past 12 m [facility], were you homeless or living in a half-way (including now)? No 08/12/2024 Utilities Answer Date Recorded In the past 12 months has e Suite[employer], gas, oil, or water company threatened to [...] Office Building Echo Lab [address] [facility], [address] [place] [address] 02/04/2025 2:40 PM EST Office Visit [facility] [place] [address] [facility], [address] [place] [address] Mauricio Lorenz MD [address] [place] [address] documented as of this encounter Visit Diagnoses Not on filedocumented in this encounter Additional Health Concerns Assessment Noted Time PHQ-9 Depression Total Score: 0 10/02/19 3:39 PM EDT A fall risk assessment has been complete d for the patient 10/01/2024 3:42 PM EDT A Body Mass Index follow-up plan has been documented for the patient 10/06/2024 2:06 PM EDT documented as of this encounter Care Teams Storage Garage Manager Relationship Specialty Start Date End Date Justino Sargent DO [address] [place] [address] PCP - General 08/04/24 Mauricio Lorenz MD [address] [place] [address] Consulting Physician Cardiology 09/10/24 documented as of this encounter
--- OUTSIDE RECORDS SUMMARY | 2024-12-10 16:05 | XMS_ITS | Encounter Summary ---
Author Organization [facility] Address [address] [place] [address] Care Team Providers Care Gerontology Aide Name Role Phone ArieSimeonkyleeflor FUENTES Primary Care Provider [phone] Mauricio Lorenz MD Unavailable [phone] Encounter Details Date Type Department Care Team (Late st Contact Info) Description 06/01/2024 Orders Only External Location [address] [place] [phone] Provider, External Social History Tobacco Use Types [...] Medical Office Building Echo Lab [address] [facility], [address] [place] [address] 02/04/2025 2:40 PM EST Office Visit [facility] [place] [address] [facility], [address] [place] [address] Mauricio Lorenz MD [address] [place] [address] documented as of this encounter Procedures Procedure Name Priority Date/Time Associated Diagnosis Comments XR MSK OUTSIDE IMAGES 06/01/2024 1:36 PM EDT documented in this encounter Results * XR MSK OUTSIDE IMAGES (06/01/2024 1:36 PM EDT) Anatomical Region Laterality Modality Radiographic Sruthi ging 06/01/2024 1:36 PM EDT us External Provider IMG XR PROCEDURES Final Result documented in this encounter Visit Diagnoses Not on filedocumented in this encounter Care Teams Gerontology Aide Relationship Specialty Start Date End Date Justino Sargent DO [address] [place] [address] PCP - General 08/04/24 Mauricio Lorenz MD [address] [place] [phone] Consulting Physician Cardiology 09/10/24 documented as of this encounter
--- OUTSIDE RECORDS SUMMARY | 2024-12-10 16:05 | XMS_ITS | Encounter Summary ---
Author Organization [facility] Address [address] [place] [address] Care Team Providers Care Golf Ball Marker Name Role Phone ArieSimeonkyleeflor FUENTES Primary Care Provider Mauricio Lorenz MD Unavailable [phone] Encounter Details Date Type Department Care Team (Late st Contact Info) Description 06/15/2024 Orders Only External Location [address] [place] [phone] Provider, External Social History Tobacco Use Types [...] Encounters Date Type Department Care Team (Late Contact Info) Description 02/04/2025 12:30 PM EST Appointment Medical Office Building Cardiac Diagnostic Testing Medical Office Building Echo Lab [address] [facility], [address] [place] [address] 02/04/2025 2:40 PM EST Office Visit [facility] [place] [address] [facility], [address] [place] [address] Mauricio Lorenz MD [address] [place] [address] documented as of this encounter Procedures Procedure Name Priority Date/Time Associated Diagnosis Comments MR NEURO OUTSIDE IMAGES 06/15/2024 4:17 PM EDT documented in this encounter Results * MR NEURO OUTSIDE IMAGES (06/15/2024 4:17 PM EDT) Anatomical Region Laterality Modality Magnetic Resonan ce 06/15/2024 4:17 PM EDT us External Provider IMG MRI PROCEDURES Final Resul t documented in this encounter Visit Diagnoses Not on filedocumented in this encounter Care Teams Golf Ball Marker Relationship Specialty Start Date End Date Justino Sargent DO [address] [place] [address] PCP - General 08/04/24 Mauricio Lorenz MD [address] [place] [phone] Consulting Physician Cardiology 09/10/24 documented as of this encounter
--- OUTSIDE RECORDS SUMMARY | 2024-12-10 16:05 | XMS_ITS | Encounter Summary ---
Author Organization [facility] Address [address] [place] [address] Care Team Providers Care Line Production Cook Name Role Phone Justino Sargent DO Primary Care Provider Mauricio Lorenz MD Unavailable [phone] Encounter Details Date Type Department Care Team (Late Contact Info) Description 07/01/2024 Community [facility] Community Practice [address] [place] [address] Justino Sargent DO [address] [place] [address] Lumbar pain (Primary Dx); Abnormal MRI, lumbar spine; Low back pain potentially associated with radiculopathy; Segmental and somatic dysfunction of pelvic region Social History Tobacco Use Types Packs/Day Years [...] Medical Office Building Echo Lab [address] [facility], [address] [place] [address] 02/04/2025 2:40 PM EST Office Visit [facility] [place] [address] [facility], [address] [place] [address] Mauricio Lorenz MD [address] [place] [address] documented as of this encounter Visit Diagnoses Diagnosis Lumbar pain- Primary Lumbago Abnormal MRI, lumbar spine Low back pain potentially associated with radiculopathy Segmental and somatic dysfunction of pelvic region documented in this encounter Care Teams Line Production Cook Relationship Specialty Start Date End Date Justino Sargent DO [address] [place] [address] PCP - General 08/04/24 Mauricio Lorenz MD [address] [place] [address] Consulting Physician Cardiology 09/10/24 documented as of this encounter
--- OUTSIDE RECORDS SUMMARY | 2024-12-10 16:05 | XMS_ITS | Encounter Summary ---
Author Organization [facility] Address [address] [place] [address] Care Team Providers Care Remote Sensing Program Manager Name Role Phone ArieSimeonkyleeflor FUENTES Primary Care Provider Mauricio Lorenz MD Unavailable [phone] Encounter Details Date Type Department Care Team (Late st Contact Info) Description 06/11/2024 Orders Only External Location [address] [place] [phone] Provider, External Social History Tobacco Use Types [...] Medical Office Building Echo Lab [address] [facility], [address] [place] [address] 02/04/2025 2:40 PM EST Office Visit [facility] [place] [address] [facility], [address] [place] [address] Mauricio Lorenz MD [address] [place] [address] documented as of this encounter Procedures Procedure Name Priority Date/Time Associated Diagnosis Comments CT MSK OUTSIDE IMAGES 06/11/2024 7:29 AM EDT documented in this encounter Results * CT MSK OUTSIDE IMAGES (06/11/2024 7:29 AM EDT) Anatomical Region Laterality Modality Computed Tomogra phy 06/11/2024 7:29 AM EDT us External Provider IMG CT PROCEDURES Final Result documented in this encounter Visit Diagnoses Not on filedocumented in this encounter Care Teams Remote Sensing Program Manager Relationship Specialty Start Date End Date Justino Sargent DO [address] [place] [address] PCP - General 08/04/24 Mauricio Lorenz MD [address] [place] [phone] Consulting Physician Cardiology 09/10/24 documented as of this encounter
--- OUTSIDE RECORDS SUMMARY | 2024-12-10 16:05 | XMS_ITS | Encounter Summary ---
Author Organization [facility] Address [address] [place] [address] Care Team Providers Care Water Quality Specialist Name Role Phone ArieSimeonkyleeflor FUENTES Primary Care Provider Mauricio Lorenz MD Unavailable [phone] Encounter Details Date Type Department Care Team (Late st Contact Info) Description 06/01/2024 Orders Only External Location [address] [place] [phone] Provider, External Social History Tobacco Use Types [...] Medical Office Building Echo Lab [address] [facility], [address] [place] [address] 02/04/2025 2:40 PM EST Office Visit [facility] [place] [address] [facility], [address] [place] [address] Mauricio Lorenz MD [address] [place] [address] documented as of this encounter Procedures Procedure Name Priority Date/Time Associated Diagnosis Comments XR MSK OUTSIDE IMAGES 06/01/2024 1:31 PM EDT documented in this encounter Results * XR MSK OUTSIDE IMAGES (06/01/2024 1:31 PM EDT) Anatomical Region Laterality Modality Radiographic Sruthi ging 06/01/2024 1:31 PM EDT us External Provider IMG XR PROCEDURES Final Result documented in this encounter Visit Diagnoses Not on filedocumented in this encounter Care Teams Water Quality Specialist Relationship Specialty Start Date End Date Justino Sargent DO [address] [place] [address] PCP - General 08/04/24 Mauricio Lorenz MD [address] [place] [phone] Consulting Physician Cardiology 09/10/24 documented as of this encounter
--- OUTSIDE RECORDS SUMMARY | 2024-12-10 16:05 | XMS_ITS | Encounter Summary ---
Author Organization [facility] Address [address] [place] [address] Care Team Providers Care Materials Engineer Name Role Phone Justino Sargent DO Primary Care Provider Mauricio Lorenz MD Unavailable [phone] Encounter Details Date Type Department Care Team (Late st Contact Info) Description 11/29/2024 [facility]phone [facility] [address], [address] [place] [address] Mark Tobin MD [address] [place] [address] Social History Tobacco Use Types Packs/Day Years [...] time in the past 12 m [facility], were you homeless or living in a custodial (including now)? No 08/12/2024 Utilities Answer Date [...] on file documented as of this encounter Miscellaneous Notes * Telephone Encounter - Román Richter - 11/29/2024 8:55 AM EDT Patient Phone Message Reason for Call: Patient calling to get MRI auth/order sent to [facility], has , patient had heart procedure needing new MRI/auth sent over and would also like to go ahead and schedule follow up appt Best contact number and optimal time of day to reach caller: [phone] Note: Please do not reply to this message. Follow-up communication and further actions as a result of this message need to be communicated with the patient directly, if the patient is not active onMyChart. If the patient is active on MyChart, they will receive notification of the communication/outcome via MyChart. documented in this encounter Plan of Treatment Upcoming Encounters Date Type Department Care Team (Late st Contact Info) Description 02/04/2025 12:30 PM EST Appointment Medical Office Building Cardiac Diagnostic Testing Medical Office Building Echo Lab [address] [facility], [address] [place] [address] 02/04/2025 2:40 PM EST Office Visit [facility] [place] [address] [facility], [address] [place] [address] Mauricio Lorenz MD [address] [place] [phone] documented as of this encounter Visit Diagnoses Not on filedocumented in this encounter Additional Health Concerns Assessment Noted Time PHQ-9 Depression Total Score: 0 10/02/19 25 3:39 PM EDT A fall risk assessment has been complete d for the patient 10/01/2024 3:42 PM EDT A Body Mass Index follow-up plan has been documented for the patient 10/06/2024 2:06 PM EDT documented as of this encounter Care Teams Materials Engineer Relationship Specialty Start Date End Date Justino Sargent DO [address] [place] [address] PCP - General 08/04/24 Mauricio Lorenz MD [address] [place] [phone] Consulting Physician Cardiology 09/10/24 documented as of this encounter
--- OUTSIDE RECORDS SUMMARY | 2024-12-10 16:05 | XMS_ITS | Encounter Summary ---
Author Organization [facility] Address [address] [place] [address] Care Team Providers Care Manufacturing Supervisor Name Role Phone Justino Sargent DO Primary Care Provider Mauricio Lorenz MD Unavailable [phone] Encounter Details Date Type Department Care Team (Late st Contact Info) Description 07/07/2024 Community [facility] Community Practice [address] [place] [address] Justino Sargent DO [address] [place] [address] Social History Tobacco Use Types Packs/Day Years [...] Medical Office Building Echo Lab [address] [facility], [address] [place] [address] 02/04/2025 2:40 PM EST Office Visit [facility] [place] [address] [facility], [address] [place] [address] Mauricio Lorenz MD [address] [place] [phone] documented as of this encounter Visit Diagnoses Not on filedocumented in this encounter Care Teams Manufacturing Supervisor Relationship Specialty Start Date End Date Justino Sargent DO [address] [place] [address] PCP - General 08/04/24 Mauricio Lorenz MD [address] [place] [phone] Consulting Physician Cardiology 09/10/24 documented as of this encounter
--- OUTSIDE RECORDS SUMMARY | 2024-12-10 16:05 | XMS_ITS | Encounter Summary ---
Author Organization [facility] Address [address] [place] [address] Care Team Providers Care Military Administrative Technician Name Role Phone ArieSimeonkyleeflor FUENTES Primary Care Provider Mauricio Lorenz MD Unavailable [phone] Encounter Details Date Type Department Care Team (Late st Contact Info) Description 06/01/2024 Orders Only External Location [address] [place] [phone] Provider, External Social History Tobacco Use Types [...] Medical Office Building Echo Lab [address] [facility], [address] [place] [address] 02/04/2025 2:40 PM EST Office Visit [facility] [place] [address] [facility], [address] [place] [address] Mauricio Lorenz MD [address] [place] [address] documented as of this encounter Procedures Procedure Name Priority Date/Time Associated Diagnosis Comments XR MSK OUTSIDE IMAGES 06/01/2024 1:32 PM EDT documented in this encounter Results * XR MSK OUTSIDE IMAGES (06/01/2024 1:32 PM EDT) Anatomical Region Laterality Modality Radiographic Sruthi ging 06/01/2024 1:32 PM EDT us External Provider IMG XR PROCEDURES Final Result documented in this encounter Visit Diagnoses Not on filedocumented in this encounter Care Teams Military Administrative Technician Relationship Specialty Start Date End Date Justino Sargent DO [address] [place] [address] PCP - General 08/04/24 Mauricio Lorenz MD [address] [place] [phone] Consulting Physician Cardiology 09/10/24 documented as of this encounter
--- NOTE | 2024-12-10 16:06 | MR_ITS ---
PROCEDURE INFORMATION: Exam: MR Thoracic Spine Without Contrast Exam date and time: 12/10/2024 4:15 PM Age: 59 years old Clinical indication: Pain in thoracic spine; PT stated pain at c7 going across shoulder , burning sensation and pain. X 1 year. No injury; Additional info: Mid back pain TECHNIQUE: Imaging protocol: Magnetic resonance imaging of the thoracic spine without contrast. COMPARISON: FINDINGS: Bones/joints: There is preservation of vertebral alignment. There is preservation of vertebral body heights. No marrow replacing process. Spinal cord: Spinal cord is normal in signal characteristics. T1-T2: No significant disc bulge or herniation. No severe spinal canal stenosis. No significant neural foraminal narrowing. T2-T3: No significant disc bulge or herniation. No severe spinal canal stenosis. No significant neural foraminal narrowing. T3-T4: No significant disc bulge or herniation. No severe spinal canal stenosis. No significant neural foraminal narrowing. T4-T5: No significant disc bulge or herniation. No severe spinal canal stenosis. No significant neural foraminal narrowing. T5-T6: No significant disc bulge or herniation. No severe spinal canal stenosis. No significant neural foraminal narrowing. T6-T7: Right paracentral disc protrusion.There is mild spinal canal stenosis. There is no significant neural foraminal narrowing. T7-T8: There is a left paracentral disc protrusion indenting and deforming the anterior cord. There is severe left spinal canal stenosis. There is no significant neural foraminal narrowing. T8-T9: There is a central disc protrusion. No significant spinal canal stenosis. There is no significant neural foraminal narrowing. T9-T10: Diffuse disc bulge and facet arthropathy noted. There is mild spinal canal stenosis. There is no significant neural foraminal narrowing. T10-T11: Diffuse disc bulge and facet arthropathy noted. There is severe spinal canal stenosis. There is no significant neural foraminal narrowing. T11-T12: No significant disc bulge or herniation. No severe spinal canal stenosis. No significant neural foraminal narrowing. T12-L1: No significant disc bulge or herniation. No severe spinal canal stenosis. No significant neural foraminal narrowing. Soft tissues: Unremarkable. IMPRESSION: Degenerative changes more pronounced at T7-T8 and T10-T11 contributing to severe spinal canal stenosis
--- NOTE | 2024-12-10 16:06 | MR_ITS ---
PROCEDURE INFORMATION: Exam: MR Cervical Spine Without Contrast Exam date and time: 12/10/2024 4:15 PM Age: 59 years old Clinical indication: Neck pain; PT stated pain at c7 going across shoulder , burning sensation and pain. X 1 year. No injury TECHNIQUE: Imaging protocol: Magnetic resonance imaging of the cervical spine without contrast. COMPARISON: MR CERVICAL SPINE WO CON 12/10/2024 4:15 PM FINDINGS: Limitations: Motion artifact does moderately limit the sensitivity of this examination. Bones/joints: There is preservation of vertebral alignment. There is preservation of vertebral body heights. No marrow replacing process. Spinal cord: Spinal cord is normal in signal characteristics. C2-C3: There is a right central disc protrusion.There is mild spinal canal stenosis. Uncovertebral and facet arthropathy produce moderate narrowing of the right neural foramen C3-C4: There is a right central disc protrusion indenting on the right anterior cord. There is severe right spinal canal stenosis. Uncovertebral and facet arthropathy produce moderate left, severe right neural foraminal narrowing. C4-C5: There is a central disc protrusion There is moderate spinal canal stenosis. Uncovertebral and facet arthropathy produce moderate bilateral neural foraminal narrowing. C5-C6: There is a right paracentral disc protrusion.There is moderate right spinal canal stenosis. Uncovertebral and facet arthropathy produce moderate bilateral neural foraminal narrowing. C6-C7: No significant disc bulge or herniation. No severe spinal canal stenosis. No significant neural foraminal narrowing. C7-T1: No significant disc bulge or herniation. No severe spinal canal stenosis. No significant neural foraminal narrowing. Soft tissues: Unremarkable. Vasculature: Expected flow voids in the vertebral arteries. IMPRESSION: Multilevel degenerative changes more pronounced at C3-C4, C4-C5, and C5-C6 producing to [id number] spinal canal stenosis as above. Uncovertebral and facet arthropathy contribute to varying degrees of neural foraminal narrowing at multiple levels
== END 2024-12-10 23:59 | disposition home or self-care (01) ==
LOC: RAD 16:03
PROVIDERS: PCP Neurological Surgery; Visit Provider Neurological Surgery
DX: M47.814 Spondylosis without myelopathy or radiculopathy, thoracic region (principal); M47.812 Spondylosis without myelopathy or radiculopathy, cervical region; M48.04 Spinal stenosis, thoracic region; M48.02 Spinal stenosis, cervical region; M99.71 Connective tissue and disc stenosis of intervertebral foramina of cervical region
CPT/HCPCS: 72141; 72146

== ENCOUNTER 2024-12-12 14:39 | Emergency (ER) | payer OTHER, SELFPAY ==
[2024-12-12] VITALS (10 sets, daily range): BP systolic 121–148; BP diastolic 70–97; PULSE 58–66; RESP 13–21; TEMP 36.6–36.9; O2SAT 92–98; BMI 28.5
--- NOTE | 2024-12-12 14:47 | ECG_ITS ---
APPROVED REPORT Exam: Resting ECG HR:63 bpm ECG Measurements Heart Rate 63 AXES NM 192 P -85 QRSd 105 QRS 61 QT 437 T 79 QTc 445 Conclusion ECTOPIC ATRIAL RHYTHM INDETERMINATE AXIS INFERIOR MYOCARDIAL INFARCTION , PROBABLY OLD [40+ ms Q WAVE AND/OR ST/T ABNORMALITY IN II/aVF] PROBABLE ANTEROLATERAL MYOCARDIAL INFARCTION , OF INDETERMINATE AGE [35 ms Q WAVE IN I/aVL/V3-V6] ABNORMAL ECG UNCONFIRMED REPORT Electronically signed by : JADA TAI, 12/14/2024 06:31:56
--- OUTSIDE RECORDS SUMMARY | 2024-12-12 14:52 | XMS_ITS | Encounter Summary ---
Author Organization Healthcare Address [address] [place] [address] Care Team Providers Care Personal Service Representative Name Role Phone Justino Sargent DO Primary Care Provider Mauricio Lorenz MD Unavailable [phone] Encounter Details Date Type Department Care Team (Late st Contact Info) Description 11/29/2024 [facility]phone [facility] [address], [address] [place] [address] Mark Tobin MD [address] [place] [address] Social History Tobacco Use Types [...] time in the past 12 [address] [facility], were you homeless or living in a snf (including now)? No 08/12/2024 Utilities Answer Date [...] calling to get MRI auth/order sent to [facility], has , patient had heart procedure needing new MRI/auth sent over and would also like to go ahead and schedule follow up appt Best contact number and optimal time of day to reach caller: [phone] Note: Please do not reply to this [...] Medical Office Building Echo Lab [address] [facility], [address] [place] [address] 02/04/2025 2:40 PM EST Office Visit [facility] [place] [address] [facility], [address] [place] [address] Mauricio Lorenz MD [address] [place] [address] documented as of this encounter Visit [...] documented as of this encounter Care Teams Personal Service Representative Relationship Specialty Start Date End Date Justino Sargent DO [address] [place] [address] PCP - General 08/04/24 Mauricio Lorenz MD [address] [place] [phone] Consulting Physician Cardiology 09/10/24 documented as of this encounter
--- OUTSIDE RECORDS SUMMARY | 2024-12-12 14:52 | XMS_ITS | Encounter Summary ---
Author Organization [facility] Address [address] [place] [address] Care Team Providers Care Refinisher Name Role Phone Justino Sargent DO Primary Care Provider Mauricio Lorenz MD Unavailable [phone] Encounter Details Date Type Department Care Team (Late st Contact Info) Description 08/16/2024 Lab Requisition [facility] [address] [place] [address] Oumar Koehler MD [address] [facility] [address] [place] [address] Encounter for general adult medical [...] any time in the past 12 m [facility], were you homeless or living in a snf (including now)? No 08/12/2024 Utilities Answer Date Recorded In the past 12 months has th e [employer], gas, oil, or water [employer] threatened to shut off services in your [...] Lab [address], [address] [place] [address] 02/04/2025 2:40 PM EST Office Visit [facility] [place] [address] , [address] [place] [address] Mauricio Lorenz MD [address] [place] [address] documented as of this encounter Procedures Procedure Name Priority Date/Time Associated Diagnosis Comments MULTI DRUG RESISTANCE TEST Routine 08/16/2024 3:00 PM EDT Encounter for general adult medical examination without abnormal findings documented in this encounter Results * Multi Drug Resistance Test (08/16/2024 3:00 PM EDT) Culture No growth at day 1 08/17/2024 4:33 PM EDT [facility] Swab Both anterior nares / Unknown 08/16/2024 3:00 PM EDT 08/16/2024 3:57 PM EDT Narrative [facility] - 08/17/2024 4:33 PM EDT This test was developed and its performance characteristics determined by the [facility]. Although the media is FDA-approved, it is not FDA-approved for all specimen types submitted. The FDA has determined that such clearance or approval is not necessary. This test is used for surveillance purposes. It should not be regarded as investigational or for research. The [facility] is certified under the Clinical Laboratory Improvement Amendments of 1988 (CLIA-88) as qualified to perform high complexity clinical laboratory testing. Oumar Koehler MD LAB MICROBIOLOGY - GEN ERAL ORDERABLES Final Result [facility] [address] [place] [address] documented in this encounter Visit Diagnoses Diagnosis [...] documented as of this encounter Care Teams Refinisher Relationship Specialty Start Date End Date Justino Sargent DO [address] [place] [address] PCP - General 08/04/24 Mauricio Lorenz MD [address] [place] [address] Consulting Physician Cardiology 09/10/24 documented as of this encounter
--- OUTSIDE RECORDS SUMMARY | 2024-12-12 14:52 | XMS_ITS | Encounter Summary ---
Author Organization [facility] Address [address] [place] [address] Care Team Providers Care Finishing Area Operator Name Role Phone ArieSimeonkyleeflor FUENTES Primary Care Provider Mauricio Lorenz MD Unavailable [phone] Encounter Details Date Type Department Care Team (Late st Contact Info) Description 06/01/2024 Orders Only External Location [address] [place] [phone] Provider, External Social History Tobacco Use Types [...] Medical Office Building Echo Lab [address] [facility], [address] [place] [address] 02/04/2025 2:40 PM EST Office Visit [facility] [place] [address] [facility], [address] [place] [address] Mauricio Lorenz MD [address] [place] [address] documented as of this encounter [...] on filedocumented in this encounter Care Teams Finishing Area Operator Relationship Specialty Start Date End Date Justino Sargent DO [address] [place] [address] PCP - General 08/04/24 Mauricio Lorenz MD [address] [place] [phone] Consulting Physician Cardiology 09/10/24 documented as of this encounter
--- OUTSIDE RECORDS SUMMARY | 2024-12-12 14:52 | XMS_ITS | Encounter Summary ---
Author Organization [facility] Address [address] [place] [address] Care Team Providers Care Employee Representative Name Role Phone ArieSimeonkyleeflor FUENTES Primary Care Provider Mauricio Lorenz MD Unavailable [phone] Encounter Details Date Type Department Care Team (Late st Contact Info) Description 06/11/2024 Orders Only External Location [address] [place] [phone] Provider, External Social History Tobacco Use Types [...] Medical Office Building Echo Lab [address] [facility], [address] [place] [address] 02/04/2025 2:40 PM EST Office Visit [facility] [place] [address] [facility], [address] [place] [address] Mauricio Lorenz MD [address] [place] [address] documented as of this encounter [...] on filedocumented in this encounter Care Teams Employee Representative Relationship Specialty Start Date End Date Justino Sargent DO [address] [place] [address] PCP - General 08/04/24 Mauricio Lorenz MD [address] [place] [phone] Consulting Physician Cardiology 09/10/24 documented as of this encounter
--- OUTSIDE RECORDS SUMMARY | 2024-12-12 14:52 | XMS_ITS | Encounter Summary ---
Author Organization [facility] Address [address] [place] [address] Care Team Providers Care Strap Folding Machine Operator Name Role Phone ArieSimeonkyleeflor FUENTES Primary Care Provider [phone] Mauricio Lorenz MD Unavailable [phone] Encounter Details Date Type Department Care Team (Late st Contact Info) Description 06/15/2024 Orders Only External Location [address] [place] [id number] Provider, External Social History Tobacco Use Types [...] Medical Office Building Echo Lab [address] [facility], [address] [place] [address] 02/04/2025 2:40 PM EST Office Visit [facility] [place] [address] [facility], [address] [place] [address] Mauricio Lorenz MD [address] [place] [address] documented as of this encounter [...] on filedocumented in this encounter Care Teams Strap Folding Machine Operator Relationship Specialty Start Date End Date Justino Sargent DO [address] [place] [address] PCP - General 08/04/24 Mauricio Lorenz MD [address] [place] [phone] Consulting Physician Cardiology 09/10/24 documented as of this encounter
--- OUTSIDE RECORDS SUMMARY | 2024-12-12 14:53 | XMS_ITS | Encounter Summary ---
Author Organization [facility] Address [address] [place] [address] Care Team Providers Care Commodity Industry Analyst Name Role Phone ArieSimeonkyleeflor FUENTES Primary Care Provider Mauricio Lorenz MD Unavailable [phone] Encounter Details Date Type Department Care Team (Late st Contact Info) Description 06/01/2024 Orders Only External Location [address] [place] [phone] Provider, External Social History Tobacco Use Types [...] Medical Office Building Echo Lab [address] [facility], [address] [place] [address] 02/04/2025 2:40 PM EST Office Visit [facility] [place] [address] [facility], [address] [place] [address] Mauricio Lorenz MD [address] [place] [address] documented as of this encounter [...] on filedocumented in this encounter Care Teams Commodity Industry Analyst Relationship Specialty Start Date End Date Justino Sargent DO [address] [place] [address] PCP - General 08/04/24 Mauricio Lorenz MD [address] [place] [phone] Consulting Physician Cardiology 09/10/24 documented as of this encounter
--- OUTSIDE RECORDS SUMMARY | 2024-12-12 14:53 | XMS_ITS | Encounter Summary ---
Author Organization [facility] Address [address] [place] [address] Care Team Providers Care Email Deployment Specialist Name Role Phone Justino Sargent DO Primary Care Provider Mauricio Lorenz MD Unavailable [phone] Encounter Details Date Type Department Care Team (Late Contact Info) Description 07/01/2024 [facility] [address] [place] [address] Justino Sargent DO [address] [place] [address] Lumbar pain (Primary Dx); Abnormal MRI, lumbar [...] Medical Office Building Echo Lab [address] [facility], [address] [place] [address] 02/04/2025 2:40 PM EST Office Visit [facility] [place] [address] [facility], [address] [place] [address] Mauricio Lorenz MD [address] [place] [address] documented as of this encounter Visit Diagnoses Diagnosis Lumbar pain- Primary Lumbago Abnormal MRI, lumbar spine Low back pain potentially associated with radiculopathy Segmental and somatic dysfunction of pelvic region documented in this encounter Care Teams Email Deployment Specialist Relationship Specialty Start Date End Date Justino Sargent DO [address] [place] [address] PCP - General 08/04/24 Mauricio Lorenz MD [address] [place] [phone] Consulting Physician Cardiology 09/10/24 documented as of this encounter
--- OUTSIDE RECORDS SUMMARY | 2024-12-12 14:53 | XMS_ITS | Clinical Summary ---
Author Organization [facility] Address [address] [place] [address] Care Team Providers Care Welder Boilermaker Name Role Phone Justino Sargent DO Primary Care Provider Mauricio Lorenz MD Unavailable [phone] Allergies No known active allergies Medications [...] Active cholecalcifero l (Vitamin D-3) 250 MCG (50274 UT) capsule Take 1 capsule by mouth [...] needed for pain, headaches or fever. Under [place] law, monthly prescriptions (30 days) can be [...] Assessment & Plan (08/17/2024 8:34 AM EDT): -[facility] Assessment & Plan (08/16/2024 7:31 AM EDT): -[facility] Assessment & Plan (08/15/2024 3:14 PM EDT): -[facility] Assessment & Plan (08/14/2024 1:09 PM EDT): -[facility] Assessment & Plan (08/14/2024 2:32 AM EDT): [...] per protocol. 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 Doing well on qd SSRI 09/2015. Dyslipidemia 04/22/2009 Overview (09/24/2024): [facility] 600 BID - [...] Type Department Care Team Description 11/29/2024 Telephone [facility] [facility] [address], [address] [place] [address] Mark Tobin MD 11/01/2024 Results Follow-Up [facility] [place] [address] [place] [address] Mauricio Lorenz MD 10/06/2024 1:40 PM EDT - 10/06/2024 11:59 PM EDT Hospital Encounter Cardiac Imaging [address] [place] [address] Atrial flutter, unspecified type (CMS/HCC) Discharge Disposition: Home or Self Care 10/06/2024 12:14 PM EDT - 10/06/2024 1:39 PM EDT Hospital Encounter [facility] Mold Maintenance Technician [address] [place] [address] Atrial flutter, unspecified type (CMS/HCC) Discharge Disposition: Home or Self Care 10/06/2024 Travel 10/05/2024 Telephone [facility] [employer] Maintenance Technician [address] [place] [address] Sandy Sanders, LOGAN 10/05/2024 Telephone [facility] [employer] Maintenance Technician [address] [place] [address] Sandy Sanders RN 10/01/2024 4:00 PM EDT Office Visit [facility] [address] , [address] [place] [address] Mauricio Lorenz MD CAD, multiple vessel (Primary Dx); Essential hypertension; Hyperlipidemia, unspecified hyperlipidemia type; S/P coronary artery bypass graft x 6; [place] (obstructive sleep apnea); Atrial flutter, unspecified type (CMS/HCC); Cellulitis of left lower extremity 10/01/2024 Travel 09/17/2024 Telephone [facility] [address] , [address] [place] [address] Mauricio Lorenz MD from Last [...] any time in the past 12 m [facility], were you homeless or living in a correction (including now)? No 08/12/2024 Utilities Answer Date [...] Office Building Echo Lab [address] [facility], [address] [place] [address] 02/04/2025 2:40 PM EST Office Visit [facility] [place] [address] [facility], [address] [place] [address] Mauricio Lorenz MD [address] [place] [phone] Health Maintenance Due Date Last Done [...] (2 of 2 - PCV) 12/22/2018 12/22/2017 [id number] Vaccine (1 - season) 2024 UKY-Influenza Vaccine [...] this topic Medical Devices Implanted Type Area Timber Watchman Device Identifier Shelf Expiration Date Model / Serial / Lot Pledget Ptfe Sharon 4.8mm X 6mm - [id number] Implanted:Qty: 1 on 08/13/2024 by Gibson Engle MD at [facility] N/A: Heart [employer] Peripherial [id number] 09/16/2026 [id number] / / Procedures Procedure Name Priority Date/Time Associated Diagnosis Comments ADULT PATCH MONITOR - 14 DAY Routine 10/06/2024 1:55 PM EDT Atrial flutter, unspecified type (CMS/HCC) ECG ADULT Routine 10/06/2024 1:37 PM EDT HC CARDIOVERSION ELECTIVE ARRHYTHMIA EXTERNAL Routine 10/06/2024 1:15 PM EDT Atrial flutter, unspecified type (CMS/HCC) FL CARDIOVERSION, ELECTIVE;SHUTTLECOCK ASSEMBLER Routine 10/06/2024 1:15 PM EDT Atrial flutter, [...] 154 bpm on Day :05:49 pm SVE(s): [place] was 0.8 %, 3624 total SVE(s) SV Arrhythmia(s): 3 event(s), longest event 5 beats on Day :05:53 pm, fastest event 154 bpm on Day :05:53 pm PVC(s): [place] was 0.14 %, 644 total PVC(s), 4 disparate morphologies PHYSICIAN COMMENTS Agree w findings above. us Mauricio Lorenz MD CV CARDIAC SERVICES PROCEDURES Final Result * ECG Adult (10/06/2024 1:37 PM EDT) EKG DIAGNOSIS CLASS Abnormal MUSE ECG Ventricular Rate 81 BPM MUSE ECG Atrial Rate 81 BPM MUSE ECG FL Interval 232 ms MUSE ECG QRSD Interval 102 ms MUSE ECG QT Interval 444 ms MUSE ECG QTC Interval 515 ms MUSE ECG P [place] 87 degrees MUSE ECG R [place] -9 degrees MUSE ECG T Wave [place] 68 degrees MUSE ECG Diagnosis Sinus rhythm with 1st degree AV block MUSE ECG Diagnosis Minimal voltage criteria for LVH, may be normal variant ( Diogo product ) MUSE ECG Diagnosis Inferior infarct , age undetermined MUSE ECG Diagnosis Prolonged QT MUSE ECG Diagnosis Abnormal ECG MUSE ECG Diagnosis MUSE ECG Diagnosis Confirmed by Crow Herbert ([id number]) on 10/06/2024 4:09:25 PM MUSE ECG 10/06/2024 1:37 PM EDT 10/06/2024 4:09 PM EDT us Grace Shannon LEAD ANDROID DEVELOPER ECG ORDERABLES Final Result MUSE ECG * FL CARDIOVERSION, ELECTIVE;SHUTTLECOCK ASSEMBLER, HC CARDIOVERSION ELECTIVE ARRHYTHMIA EXTERNAL (10/06/2024 1:15 [...] Alternatives discussed: Rate-control medication and anti-coagulation medication [place] protocol: Procedure explained and questions answered to [...] 7.4(H) <5.7 % 08/11/2024 2:23 PM EDT [facility] Blood Venous blood specimen / Unknown Venipuncture / Unknown 08/11/2024 11:28 AM EDT 08/11/2024 11:57 AM EDT Narrative [facility] - 08/11/2024 2:23 PM EDT HA1C Interpretive Data: Diagnosis of Diabetes: Diabetic > or = 6.5% Pre-diabetic 5.7 to 6.4% Non-diabetic < or = 5.6% Glycemic Targets for Type I and Type II Diabetics: Non- Adults <7.0% Adults <6.0% Children and Adolescents <7.5% Source: [place] [employer]. Standards of medical care in diabetes,2017. Diabetes Care.2017:40 (suppl 1):S1-S135. us Mauricio Lorenz MD LAB BLOOD ORDERABLES Final Resu lt [facility] [address] [place] [address] from Last 3 Months or Most Recently Relevant to Health Maintenance Insurance [facility] MEDICAID Advance Directives * Full Code (Latest [...] updated to appropriate status: Yes Care Teams Welder Boilermaker Relationship Specialty Start Date End Date Justino Sargent DO [address] [place] [address] PCP - General 08/04/24 Mauricio Lorenz MD [address] [place] [phone] Consulting Physician Cardiology 09/10/24
--- OUTSIDE RECORDS SUMMARY | 2024-12-12 14:53 | XMS_ITS | Encounter Summary ---
Author Organization [facility] Address [address] [place] [address] Care Team Providers Care Sales Special Agent Name Role Phone ArieSimeonkyleeflor FUENTES Primary Care Provider Mauricio Lorenz MD Unavailable [phone] Encounter Details Date Type Department Care Team (Late st Contact Info) Description 06/01/2024 Orders Only External Location [address] [place] [phone] Provider, External Social History Tobacco Use Types [...] Medical Office Building Echo Lab [address], [address] [place] [address] 02/04/2025 2:40 PM EST Office Visit [facility] [place] [address], [address] [place] [address] Mauricio Lorenz MD [address] [place] [address] documented as of this encounter [...] on filedocumented in this encounter Care Teams Sales Special Agent Relationship Specialty Start Date End Date Justino Sargent DO [address] [place] [address] PCP - General 08/04/24 Mauricio Lorenz MD [address] [place] [phone] Consulting Physician Cardiology 09/10/24 documented as of this encounter
--- OUTSIDE RECORDS SUMMARY | 2024-12-12 14:53 | XMS_ITS | Encounter Summary ---
Author Organization [facility] Address [address] [place] [address] Care Team Providers Care Meter Attendant Name Role Phone ArieSimeonkyleeflor FUENTES Primary Care Provider Mauricio Lorenz MD Unavailable [phone] Encounter Details Date Type Department Care Team (Late st Contact Info) Description 06/01/2024 Orders Only External Location [address] [place] [phone] Provider, External Social History Tobacco Use Types [...] Echo Lab [address], [address] [place] [address] 02/04/2025 2:40 PM EST Office Visit [facility] [place] [address], [address] [place] [address] Mauricio Lorenz MD [address] [place] [address] documented as of this encounter [...] on filedocumented in this encounter Care Teams Meter Attendant Relationship Specialty Start Date End Date Justino Sargent DO [address] [place] [address] PCP - General 08/04/24 Mauricio Lorenz MD [address] [place] [phone] Consulting Physician Cardiology 09/10/24 documented as of this encounter
--- OUTSIDE RECORDS SUMMARY | 2024-12-12 14:53 | XMS_ITS | Encounter Summary ---
Author Organization [facility] Address [address] [place] [address] Care Team Providers Care Inspector And Clipper Name Role Phone Justino Sargent DO Primary Care Provider Mauricio Lorenz MD Unavailable [phone] Reason for Referral * Consultation (Routine) - Closed Specialty Diagnoses / Procedures Referred By Contac t Referred To Contact Cardiology Diagnoses Abnormal stress test Family history of coronary artery disease Referral ID Status Reason Start Date Expiration Date Visits Re quested Visits Authorized [id number] Closed 07/26/2024 01/25/2026 1 1 Encounter Details Date Type Department Care Team (Late st Contact Info) Description 07/26/2024 [facility] [address] [place] [address] Justino Sargent DO [address] [place] [address] Abnormal stress test (Primary Dx); Family history [...] Medical Office Building Echo Lab [address] [facility], [address] [place] [phone] 02/04/2025 2:40 PM EST Office Visit [facility] [place] [address] [facility], [address] [place] [address] Mauricio Lorenz MD [address] [place] [address] Scheduled Referrals Name Type Priority [...] disease documented in this encounter Care Teams Inspector And Clipper Relationship Specialty Start Date End Date Justino Sargent DO [address] [place] [address] PCP - General 08/04/24 Mauricio Lorenz MD [address] [place] [address] Consulting Physician Cardiology 09/10/24 documented as of this encounter
--- OUTSIDE RECORDS SUMMARY | 2024-12-12 14:53 | XMS_ITS | Encounter Summary ---
Author Organization [facility] Address [address] [place] [address] Care Team Providers Care Supply Coordinator Name Role Phone Justino Sargent DO Primary Care Provider Mauricio Lorenz MD Unavailable [phone] Encounter Details Date Type Department Care Team (Late st Contact Info) Description 07/07/2024 [facility] [address] [place] [address] Justino Sargent DO [address] [place] [address] Social History Tobacco Use Types Packs/Day Years [...] Medical Office Building Echo Lab [address], [address] [place] [address] 02/04/2025 2:40 PM EST Office Visit [facility] [place] [address], [address] [place] [address] Mauricio Lorenz MD [address] [place] [phone] documented as of this encounter Visit Diagnoses Not on filedocumented in this encounter Care Teams Supply Coordinator Relationship Specialty Start Date End Date Justino Sargent DO [address] [place] [address] PCP - General 08/04/24 Mauricio Lorenz MD [address] [place] [phone] Consulting Physician Cardiology 09/10/24 documented as of this encounter
--- OUTSIDE RECORDS SUMMARY | 2024-12-12 14:53 | XMS_ITS | Encounter Summary ---
Author Organization [facility] Address [address] [place] [address] Care Team Providers Care Senior Security Engineer Name Role Phone Justino Sargent DO Primary Care Provider [phone] Mauricio Lorenz MD Unavailable [phone] Encounter Details Date Type Department Care Team (Late st Contact Info) Description 11/01/2024 Results Follow-Up [facility] [place] [address] [facility] [place] [address] Mauricio Lorenz MD [address] [place] [address] Social History Tobacco Use Types [...] in the past 12 m [facility], were you homeless or living in a prison (including now)? No 08/12/2024 Utilities Answer Date Recorded In the past 12 months has e [employer], gas, oil, or water company threatened to [...] [address] [facility] [address], [address] [place] [address] 02/04/2025 2:40 PM EST Office Visit [facility] [place] [address] [facility] [address], [address] [place] [address] Mauricio Lorenz MD [address] [place] [address] documented as of this encounter [...] documented as of this encounter Care Teams Senior Security Engineer Relationship Specialty Start Date End Date Justino Sargent DO [address] [place] [address] PCP - General 08/04/24 Mauricio Lorenz MD [address] [place] [address] Consulting Physician Cardiology 09/10/24 documented as of this encounter
[2024-12-12 15:03] LABS: Hematocrit 48.4 % (42.0-52.0); Hemoglobin 16.3 g/dL (14.1-18.0); Immature Granulocytes % 0.3 %; Mean Corpuscular HGB Conc 33.7 g/dL (31.8-35.4); Mean Corpuscular Hemoglobin 29.6 pg (27.0-31.2); Mean Corpuscular Volume 87.8 fl (80-94); Nucleated Red Blood Cells % 0 %; Platelet Count 191 K/mm3 (142-424); Red Blood Count 5.51 M/mm3 (4.60-6.20); Red Cell Distribution Width-SD 44.4 fL; White Blood Count 11.2 K/mm3 (4.8-10.8)
--- NOTE | 2024-12-12 15:04 | XR_ITS ---
PROCEDURE INFORMATION: Exam: XR Chest Exam date and time: 12/12/2024 3:38 PM Age: 59 years old Clinical indication: Pain; Shortness of breath; Chest pressure; Prior surgery; Surgery date: 6+ months; Surgery type: Cardiac cath; Additional info: Chest pain/shortness of breath TECHNIQUE: Imaging protocol: Radiologic exam of the chest. Views: 1 view. COMPARISON: FINDINGS: Tubes, catheters and devices: EKG leads. Lungs: Unremarkable. No consolidation. Pleural spaces: Unremarkable. No pleural effusion. No pneumothorax. Heart/Mediastinum: Unremarkable. No cardiomegaly. Bones/joints: Sternal sutures. IMPRESSION: No acute findings.
[2024-12-12 15:17] LABS: Alanine Aminotransferase 47 U/L (12-78); Albumin Level 3.9 g/dl (3.5-5.0); Albumin/Globulin Ratio 1.0 (1.1-1.8); Alkaline Phosphatase 103 U/L (38-126); Anion Gap 13.0 mEq/L (5-15); Aspartate Amino Transferase 37 U/L (17-59); Bilirubin,Total 0.8 mg/dl (0.2-1.3); Blood Urea Nitrogen 18 mg/dl (9-20); Calcium 9.6 mg/dl (8.4-10.2); Carbon Dioxide 26 mmol/L (22.0-30.0); Chloride 101 mmol/L (98-107); Creatinine Clearance Estimated 142 mL/min (50-200); Creatinine,Serum 0.90 mg/dl (0.66-1.25); Estimated Glomerular Filt Rate 87 ml/min (>60); GFR (African American) 105 ML/MIN (>60); Globulin 4.0 g/dL (1.3-3.2); Glucose 202 mg/dl (74-100); Potassium 4.0 mmoL/L (3.5-5.1); Sodium 136 mmol/L (136-145); Total Protein,Serum 7.9 g/dl (6.3-8.2)
[2024-12-12 15:22] LABS: D-Dimer 0.35 ug/mL (0.0-0.5)
[2024-12-12 15:31] LABS: Troponin I < 0.01 ng/ml (0.00-0.034)
--- NOTE | 2024-12-12 16:41 | HMH.EDGENADL ---
Discharge Plan Disposition Patient Disposition: Home, Self-Care Condition: Good Prescriptions Prescriptions: No Action Ozempic 0.25 mg or 0.5 mg (2 mg/3 mL) pen injector SQ Patient Comments: inject 0.25mg subcutaneously ONCE WEEKLY FOR 4 WEEKS, THEN increase TO inject 0.5mg subcutaneously ONCE a WEEK DIRECTED testosterone cypionate 200 mg/mL oil IM Patient Comments: INJECT ONE-HALF ML INTRAMUSCULARLY ONCE WEEKLY DISCARD REMAINDER AFTER EACH USE lisinopril 40 mg tablet PO Patient Comments: TAKE ONE TABLET BY MOUTH EVERY DAY glimepiride 4 mg tablet PO Patient Comments: TAKE ONE TABLET BY MOUTH EVERY MORNING amlodipine 5 mg tablet PO Patient Comments: TAKE ONE TABLET BY MOUTH EVERY DAY citalopram 40 mg tablet PO Patient Comments: TAKE ONE TABLET BY MOUTH EVERY DAY metformin 500 mg tablet PO Patient Comments: TAKE ONE TABLET BY MOUTH DAILY FOR 7 DAYS, THEN INCREASE TO 1 TABLET TWICE DAILY diclofenac sodium [Voltaren Arthritis Pain] 1 % gel 2 g topical QID Qty: 100 3RF Rx Instructions: apply to single elbow, wrist or hand; for hand includes palm/fingers/back of hand Referrals Follow up/Referrals: Justino Sargent DO [Primary Care Provider, Medical] - See instructions Activity Restrictions/Add. Instructions Additional Instructions/Restrictions: Follow-up with your carton maker for further work-up. Return to the ER for any acute or worsening symptoms. Clinical Impressions Clinical Impression: Increasing shortness of breath Print Language Print Language: Belarusian Discharge ED Provider: Mickey Nance Adult HPI General Chief complaint: Arrhythmia/Palpitations Stated complaint: high b/p, atrial flutter Time Seen by Provider: 12/12/24 14:46 Mode of Arrival: Ambulatory Source of Information: Patient Description of Symptoms (Recalled from ER Triage Doc. by RN): pt presents to ED with c/o shortness of air with excertion and uncontrollable blood pressure. History of Present Illness HPI narrative: Patient is a 59-year-old gentleman with a past medical history of cardiac stents who presents to the emergency department with concern abnormal rhythm and shortness of breath. Patient states that he had cardiac stents placed and has been on medication since this time. Patient states he has been feeling more short of breath since the surgery and has been told in the past that he had an irregular rhythm. Patient denies any chest pain. Patient denies any abdominal pain nausea vomiting or diarrhea. Patient denies any leg swelling. Related Data Home Medications ?Medication ?Instructions ?Recorded ?Confirmed amlodipine 5 mg tablet mg PO 06/07/24 07/08/24 citalopram 40 mg tablet mg PO 06/07/24 07/08/24 glimepiride 4 mg tablet mg PO 06/07/24 07/08/24 lisinopril 40 mg tablet mg PO 06/07/24 07/08/24 metformin 500 mg tablet mg PO 06/07/24 07/08/24 semaglutide 0.25 mg or 0.5 mg (2 mg SQ 06/07/24 07/08/24 mg/3 mL) subcutaneous pen injector (Ozempic) testosterone cypionate 200 mg/mL mg IM 06/07/24 07/08/24 intramuscular oil Previous Rx's ?Medication ?Instructions ?Recorded diclofenac sodium 1 % topical gel 2 g topical QID #100 grams 07/08/24 (Voltaren Arthritis Pain) Allergies Allergy/AdvReac Type Severity Reaction Status Date / Time No Known Allergies Allergy Verified 07/08/24 10:30 [facility] Disclaimer: The information contained in this section may have been updated after the patient was seen, as this information can be updated by other users. Social History Smoking Status: Never smoker alcohol intake: never current occupational status: other Travel in the last 8 weeks?: None Have you lived/traveled outside US in past 30 days?: No Contact w/someone who lives/traveled outside US past 30 days?: No Exposure to someone with infectious disease in past 14 days?: No Do you have a fever (greater than 100.4 F or 38 C)?: No Have you tested positive for COVID-19?: No Exposed to someone with COVID-19 in past 14 days?: No Do you have a sore throat?: No Do you have a cough?: No Do you have any weakness?: No Do you have any diarrhea?: No Are you experiencing any unusual bleeding?: No Do you have any muscle aches/pain?: No Do you have any abdominal pain?: No Are you experiencing loss of taste or smell?: No ROS Obtained: Yes All systems reviewed & no additional complaints except as documented and Yes Systems reviewed as appropriate & no additional complaints except as documented Physical Exam General General appearance: alert and in no apparent distress Head Head exam: atraumatic, normocephalic and normal inspection Eye Eye exam: Present normal appearance, PERRL and EOMI; Absent scleral icterus ENT ENT exam: Present normal exam and normal external ear exam Neck Neck exam: Present normal inspection and full ROM Chest Chest inspection: Present normal inspection and symmetric chest wall rise Respiratory Respiratory exam: Present normal lung sounds bilaterally; Absent respiratory distress or wheezes Cardiovascular Cardiovascular exam: Present regular rate, normal rhythm and normal heart sounds Abdominal Exam Abdominal exam: Present soft and distention; Absent tenderness, guarding or rebound Extremities Exam Extremities exam: Present normal inspection and full ROM Back Exam Back exam: Present normal inspection and full ROM Neurological Exam Neurological exam: Present alert and oriented X3 Psychiatric Psychiatric exam: Present normal affect and normal mood Skin Skin exam: Present warm and dry Medical Decision Making Medical Records Medical records reviewed: Yes I reviewed the patient's medical records. Screening: Per USPSTF and CDC recommendations, given the prevalence of disease in our region, it is our hospital?s policy to screen for HIV and viral Hepatitis for all patients aged 18 and over and those with ongoing risk factors. Leo Inquiry Pt receiving controlled substance: No Vital Signs: 12/12/24 14:49 12/12/24 15:00 12/12/24 15:30 Temperature 97.9 F Temperature Source Oral Pulse Rate 61 64 Pulse Rate [Left Radial] 66 Respiratory Rate 13 14 20 Blood Pressure 132/83 121/70 Blood Pressure [Right Arm] 143/92 H Blood Pressure Mean [Right Arm] 109 Blood Pressure Source Blood Pressure Position 02 Sat by Pulse Oximetry 96 96 94 L Oxygen Delivery Method Room Air 12/12/24 16:00 12/12/24 16:30 12/12/24 17:00 Temperature Temperature Source Pulse Rate 64 58 L 58 L Pulse Rate [Left Radial] Respiratory Rate 21 19 18 Blood Pressure 121/82 131/85 122/83 Blood Pressure [Right Arm] Blood Pressure Mean [Right Arm] Blood Pressure Source Blood Pressure Position 02 Sat by Pulse Oximetry 92 L 93 L 92 L Oxygen Delivery Method Room Air Room Air Room Air 12/12/24 17:30 12/12/24 18:00 12/12/24 18:30 Temperature Temperature Source Pulse Rate 61 59 L 66 Pulse Rate [Left Radial] Respiratory Rate 19 19 16 Blood Pressure 125/84 135/81 140/92 H Blood Pressure [Right Arm] Blood Pressure Mean [Right Arm] Blood Pressure Source Blood Pressure Position 02 Sat by Pulse Oximetry 96 93 L 96 Oxygen Delivery Method Room Air Room Air Room Air 12/12/24 19:11 Temperature 98.5 F Temperature Source Oral Pulse Rate 63 Pulse Rate [Left Radial] Respiratory Rate 16 Blood Pressure 148/97 H Blood Pressure [Right Arm] Blood Pressure Mean [Right Arm] Blood Pressure Source Automatic Cuff Blood Pressure Position Sitting 02 Sat by Pulse Oximetry Oxygen Delivery Method Room Air Lab Data Lab results reviewed: Yes I reviewed the patient's lab results. Lab Results 12/12/24 14:53: WBC 11.2 H, RBC 5.51, Hgb 16.3, Hct 48.4, MCV 87.8, MCH 29.6, MCHC 33.7, RDW 13.7, Plt Count 191, MPV 9.2, Neut % (Auto) 65.1, Lymph % (Auto) 26.4, Loving % (Auto) 6.3, Eos % (Auto) 1.2, Baso % (Auto) 0.7, Neut # (Auto) 7.3, Lymph # (Auto) 3.0, Loving # (Auto) 0.7, Eos # (Auto) 0.1, Baso # (Auto) 0.1, D-Dimer 0.35, Sodium 136, Potassium 4.0, Chloride 101, Carbon Dioxide 26, Anion Gap 13.0, BUN 18, Creatinine 0.90, Estimated Creat Clear 142, Estimated GFR 87, Est GFR ( Amer) 105, Glucose 202 H, Calcium 9.6, Total Bilirubin 0.8, AST 37, ALT 47, Alkaline Phosphatase 103, Troponin I < 0.01, NT-Pro-B Natriuret Pep 121, Total Protein 7.9, Albumin 3.9, Globulin 4.0 H, Albumin/Globulin Ratio 1.0 L, HCV Ab TAN w/Rflx PCR Qn Negative, HIV Ag/Ab Combo Qual Negative 12/12/24 17:48: Troponin I < 0.01 12/12/24 14:53 12/12/24 14:53 Orders (Tests/Meds): ORDERS Category Date Time Status CXR --portable [XR chest portable] Stat Exams 12/12/24 15:04 Completed BNP [NT Pro Brain Natriuretic Pep.] Stat Lab 12/12/24 14:53 Completed Complete Blood Count Auto Diff Stat Lab 12/12/24 14:53 Completed Comprehensive Metabolic Panel Stat Lab 12/12/24 14:53 Completed D-Dimer Stat Lab 12/12/24 14:53 Completed HIV Combo Stat Lab 12/12/24 14:53 Completed Hepatitis C Ab Qual. W/ RFX Stat Lab 12/12/24 14:53 Completed Trop I [Troponin I] Stat Lab 12/12/24 14:53 Completed Troponin I Q3H Lab 12/12/24 17:48 Completed Medical Decision Narrative: Patient is a 59-year-old gentleman with a past medical history of cardiac stents who presents to the emergency department with concern for shortness of breath since his surgery. On arrival, patient was hemodynamically stable with unremarkable vital signs. Differential includes but not limited to: Arrhythmia, ACS/OH, pulmonary embolism, pleural effusion, pneumothorax, amongst others. Patient's labs were reviewed and interpreted by myself: CBC showed mild leukocytosis with a stable hemoglobin. D-dimer normal. Chemistry unremarkable. Initial troponin less than 0.01, second troponin less than 0.01. Chest x-ray was reviewed and interpreted by myself and showed no acute focal consolidation, pneumothorax, pleural effusion or other acute cardiopulmonary process. EKG was reviewed and interpreted by myself and showed normal sinus rhythm without acute ST or T wave changes concerning for ischemia Given patient's unremarkable workup I felt the patient was stable and appropriate for discharge home. I recommended the patient follow-up with his carton maker, patient was otherwise discharged home in stable condition. Critical Care Critical Care Time Critical Care Time: No
[2024-12-12 16:55] LABS: Hepatitis C Ab Qual. W/ RFX NEGATIVE (Negative)
[2024-12-12 17:21] LABS: NT Pro Brain Natriuretic Pep. 121 pg/mL (0-125)
[2024-12-12 18:25] LABS: Troponin I < 0.01 ng/ml (0.00-0.034)
== END 2024-12-12 19:12 | disposition home or self-care (01) ==
PROVIDERS: Student in an Organized Health Care Education/Training Program; Emergency Provider Student in an Organized Health Care Education/Training Program; PCP Family Medicine
DX: R06.02 Shortness of breath (principal); I10 Essential (primary) hypertension; Z86.79 Personal history of other diseases of the circulatory system; Z95.5 Presence of coronary angioplasty implant and graft
CPT/HCPCS: 71045; 80053; 83880; 84484; 85025; 85378; 86803; 87389; 93005; 99284

== ENCOUNTER 2025-01-27 12:38 | Outpatient (CLI) | payer OTHER, SELFPAY ==
--- NOTE | 2025-01-27 12:44 | CA_ITS ---
FINAL REPORT TECHNIQUE: Christine scale, color and spectral doppler images of the bilateral carotid arteries were obtained. CLINICAL HISTORY: DIZZINESS,CABG,CAD,HTN COMPARISON: None FINDINGS: Peak systolic velocity in the right internal carotid artery is 128 cm/sec. The internal carotid to common carotid artery ratio is 1.7. There is no significant carotid artery stenosis and moderate plaque formation. The right vertebral artery is normal in direction. Peak systolic velocity in the left internal carotid artery is 105 cm/sec. The internal carotid to common carotid artery ratio is 1.1. There is no significant carotid artery stenosis and moderate plaque formation. The left vertebral artery is normal in direction. IMPRESSION: No ultrasound evidence of hemodynamically significant carotid artery stenosis. Normal peak systolic velocities and normal internal to common carotid artery ratios bilaterally. Moderate plaque formation is present in the carotid arteries bilaterally. Reviewed, Interpreted and Dictated by Micheal Garcia MD Transcribed by Palmira Martin Authenticated and [facility]
== END 2025-01-27 23:59 | disposition home or self-care (01) ==
LOC: RT 12:39
PROVIDERS: PCP Family Medicine; Visit Provider Family Medicine
DX: I65.23 Occlusion and stenosis of bilateral carotid arteries (principal); Z95.1 Presence of aortocoronary bypass graft
CPT/HCPCS: 93880